=== PATIENT | male | born 1960 | race Caucasian/White ===

== ENCOUNTER 2016-07-02 19:03 | Inpatient (IN) | payer OTHER ==
[2016-07-02] MEDS ORDERED: PHENERGAN IV ONE (20:49)
[2016-07-02] MEDS ORDERED: SODIUM CHLORIDE 0.9% INJ ONE (20:49)
[2016-07-02] MEDS ORDERED: LR 1,000 ML IV PRN (20:49)
[2016-07-02 21:12] LABS: MANUAL DIFF NEEDED? NO
[2016-07-02 21:14] LABS: BASO% 0.4 % (0.0-0.8); EOS# 0.04 X1000 (0.0-0.7); EOS% 0.3 % (0.0-10.0); HEMATOCRIT 44.4 % (42.0-52.0); HEMOGLOBIN 15.5 g/dL (14.0-18.0); IMM GRAN# 0.06 X1000 (0.0-0.04); IMM GRAN% 0.4 % (0.0-0.5); LYMPH# 1.96 X1000 (1.2-3.4); LYMPH% 14.5 % (20.5-51.1); MCH 28.1 PG (27-31); MCHC 34.9 g/dL (33-37); MCV 80.4 FL (81-99); MONO# 1.09 X1000 (0.11-0.59); MONO% 8.1 % (1.7-9.3); MPV 11.5 FL (7.4-10.4); NEUT% 76.3 % (42.2-75.2); PLT 192 X1000 (130-400); RBC 5.52 XMIL (4.7-6.1)
--- NOTE | 2016-07-02 21:17 | PROVIDER DOCUMENTATION ---
HPI-General Adult - General Chief Complaint: Nausea/Vomiting Stated Complaint: NECK PAIN,HEADACHE V/N Time Seen by Provider: 07/02/16 20:48 Source: patient Allergies/Adverse Reactions: Patient Allergies Allergy/AdvReac Type Severity Reaction Status Date / Time cephalexin monohydrate * Allergy Unknown Verified 07/02/16 21:12 [From Keflex] Penicillins Allergy Unknown Verified 07/02/16 21:12 Home Medications: Home Medication List Medication Instructions Recorded Confirmed Last Taken Type Duloxetine [Cymbalta] 60 mg PO DAILY 11/23/15 06/07/16 06/06/16 History Gabapentin 800 mg PO TID 11/23/15 06/07/16 06/06/16 History Ropinirole [Requip] 4 mg PO BID 11/23/15 06/07/16 06/06/16 History Tizanidine [Zanaflex] 4 mg PO Q6H 11/23/15 06/07/16 06/06/16 History Fluticasone Propionate [Flonase 2 spray INH DAILY 03/30/16 06/07/16 06/06/16 History Allergy Relief] Metoprolol [Lopressor] 100 mg PO BID 03/30/16 06/07/16 06/06/16 History Ondansetron HCl [Zofran] 4 mg PO Q6H PRN 03/30/16 06/07/16 06/06/16 History Tolterodine L.a. [Detrol LA] 2 mg PO DAILY 03/30/16 06/07/16 06/06/16 History ATORVAstatin [Lipitor] 40 mg PO QHS 04/30/16 06/07/16 06/06/16 History Collagenase Clostridium Oint 1 misc TOP DAILY 04/30/16 06/07/16 06/06/16 History [Santyl Oint] Insulin Glargine,Hum.rec.anlog 33 unit SQ QAM 04/30/16 06/07/16 06/06/16 History [Toujeo Solostar] Insulin Glargine,Hum.rec.anlog 80 unit SQ HS 04/30/16 06/07/16 06/06/16 History [Toujeo Solostar] Insulin Lispro [Humalog] 12 unit SQ TID 04/30/16 06/07/16 06/06/16 History Losartan [Cozaar] 50 mg PO DAILY 04/30/16 06/07/16 06/06/16 History Amlodipine [Norvasc] 10 mg PO DAILY #90 tablet 05/02/16 06/07/16 06/06/16 Rx Trazodone [Desyrel] 100 mg PO QHS #0 05/02/16 06/07/16 06/06/16 Rx Tramadol HCl [Ultram] 50 mg PO 3-4XDAY PRN PRN #30 tablet 06/09/16 Unknown Rx Levofloxacin [Levaquin] 750 mg PO DAILY #7 tablet 07/03/16 Unknown Rx - History of Present Illness -Gen Adult Nature of Presenting Problems: 56 Y/O M presents to ED with N/V. Pt states that he has a 3 day c/o of Vomiting , and states that he has a bulging disc in neck which is causing headaches, states hasn't eaten in 3 days. Pt states constipation, states a low grade fever , 2-3 weeks of congestion with cough. Location of Pain/Injury: reports: head, neck Quality of Pain: reports: aching Severity: reports: moderate Onset/Duration: reports: 3 days ago Timing: reports: still present Context/Activities at Onset: reports: none Modifying Factors: improves with: nothing Associated Symptoms: reports: back/neck pain, constipation, loss of appetite, nausea, vomiting. denies: diarrhea, dizziness Review of Systems - Adult - REVIEW OF SYSTEMS - ADULT Constitutional: reports: fever. denies: chills Eyes: reports: no symptoms reported Ears, Nose, Mouth & Throat: reports: sinus problem, throat pain Cardiovascular: reports: no symptoms reported Respiratory: reports: cough Gastrointestinal: reports: abdominal pain, constipation, nausea, poor appetite, vomiting. denies: diarrhea Genitourinary: reports: no symptoms reported Musculoskeletal: reports: no symptoms reported Integumentary: reports: no symptoms reported Neurological: reports: headache/migraines Psychiatric: reports: no symptoms reported Endocrine: reports: no symptoms reported Hematologic/Lymphatic: reports: no symptoms reported Allergic/Immunologic: reports: no symptoms reported All Other Systems: Reviewed and Negative Past History - Adult - PAST MEDICAL HISTORY-ADULT Review of Records: reports: Old Records Reviewed, Nursing Assessment Review, Medications Reviewed, Social history reviewed & non-contributory. Cardiovascular: reports: HTN, hyperlipidemia Respiratory: reports: sleep apnea Genitourinary: reports: cancer (kidney) Endocrine/Immune: reports: Diabetes Other Conditions: reports: other (right kidney ca 2012) Additional History: left heal diabetic Foot ulcer - PRIOR SURGERIES/PROCEDURES Surgical/Procedure History: reports: appendectomy, cholecystectomy, orthopedic ( extremity), other (Right Nephrectomy) - IMMUNIZATION STATUS Childhood Immunizations: See Nurse Assessment Flu Vaccine: See Nurse Assessment - FAMILY HISTORY Family History: reviewed, not pertinent - SOCIAL HISTORY Smoking: non-smoker Alcohol Use Frequency: rarely Living Situation: family Physical Exam-General - PHYSICAL EXAM-ADULT Initial Vital Signs Reviewed: Yes - CONSTITUTIONAL General Appearance: appears well, alert, no apparent distress - EYES Eyes: PERRL/EOMI, pink conjunctivae - HEAD, EARS, NOSE, MOUTH & THROAT HENMT: normocephalic/atraumatic, moist mucous membranes, normal ENT inspection, TMs normal, pharynx normal - NECK Neck: non-tender, full range of motion, supple - RESPIRATORY Respiratory: chest non-tender, lungs clear, normal breath sounds - CARDIOVASCULAR Cardiovascular: normal peripheral pulses, regular rate, rhythm - GASTROINTESTINAL (ABDOMEN) Abdominal Exam: normal bowel sounds, soft, tenderness (LUQ) - MUSCULOSKELETAL Back Exam: normal inspection, no CVA tenderness, no vertebral tenderness Extremity: non-tender, pedal edema (2+) - SKIN Integumentary: normal color, normal turgor, warm/dry - NEUROLOGIC Neurologic: investment broker II-XII nml as tested - PSYCHIATRIC Psych/Mental Status: normal mood/affect, normal thought content, normal thought process, oriented x 3 Progress - PLAN OF CARE/RESULTS Progress/Plan/Lab Results: Laboratory Tests 07/02/16 07/02/16 07/02/16 21:05 21:05 21:05 WBC 13.49 H RBC 5.52 Hgb 15.5 Hct 44.4 MCV 80.4 L MCH 28.1 MCHC 34.9 RDW Std Deviation 13.5 Plt Count 192 MPV 11.5 H Immature Gran % (Auto) 0.4 Neut % (Auto) 76.3 H Lymph % (Auto) 14.5 L [place] % (Auto) 8.1 Eos % (Auto) 0.3 Baso % (Auto) 0.4 Immature Gran # (Auto) 0.06 H Neut # (Auto) 10.28 H Lymph # (Auto) 1.96 [place] # (Auto) 1.09 H Eos # (Auto) 0.04 Baso # (Auto) 0.06 Sodium 131 L Potassium 4.2 Chloride 96 L Carbon Dioxide 22 L Anion Gap 13 BUN 32 H Creatinine 2.3 H Estimated GFR/1.73 m2 30 BUN/Creatinine Ratio 14 Glucose 219 H Estimat Average Glucose 212 Hemoglobin A1c 9.0 H Calculated Osmolality 276 Calcium 9.4 Total Bilirubin 1.30 H AST 13 ALT 9 L Alkaline Phosphatase 143 H Troponin T Total Protein 6.3 Albumin 3.1 L Globulin 3.0 Albumin/Globulin Ratio 1.0 Urine Source Urine Color Urine Clarity Urine pH Ur Specific [employer] [place] Urine Protein Urine Ketones Urine Blood Urine Nitrite Urine Bilirubin Urine Urobilinogen Urine Microscopic RBC Urine WBC Urine Microscopic WBC Ur Epithelial Cells Urine Bacteria Urine Casts Urine Glucose Influenza A (Rapid) Influenza B (Rapid) Group A Strep Rapid 07/02/16 07/02/16 07/02/16 21:05 21:17 21:17 WBC RBC Hgb Hct MCV MCH MCHC RDW Std Deviation Plt Count MPV Immature Gran % (Auto) Neut % (Auto) Lymph % (Auto) [place] % (Auto) Eos % (Auto) Baso % (Auto) Immature Gran # (Auto) Neut # (Auto) Lymph # (Auto) [place] # (Auto) Eos # (Auto) Baso # (Auto) Sodium Potassium Chloride Carbon Dioxide Anion Gap BUN Creatinine Estimated GFR/1.73 m2 BUN/Creatinine Ratio Glucose Estimat Average Glucose Hemoglobin A1c Calculated Osmolality Calcium Total Bilirubin AST ALT Alkaline Phosphatase Troponin T 0.019 Total Protein Albumin Globulin Albumin/Globulin Ratio Urine Source Urine Color Urine Clarity Urine pH Ur Specific [employer] Urine Protein Urine Ketones Urine Blood Urine Nitrite Urine Bilirubin Urine Urobilinogen Urine Microscopic RBC Urine WBC Urine Microscopic WBC Ur Epithelial Cells Urine Bacteria Urine Casts Urine Glucose Influenza A (Rapid) NEGATIVE Influenza B (Rapid) NEGATIVE Group A Strep Rapid NEGATIVE 07/02/16 07/03/16 23:50 00:50 WBC RBC Hgb Hct MCV MCH MCHC RDW Std Deviation Plt Count MPV Immature Gran % (Auto) Neut % (Auto) Lymph % (Auto) [place] % (Auto) Eos % (Auto) Baso % (Auto) Immature Gran # (Auto) Neut # (Auto) Lymph # (Auto) [place] # (Auto) Eos # (Auto) Baso # (Auto) Sodium Potassium Chloride Carbon Dioxide Anion Gap BUN Creatinine Estimated GFR/1.73 m2 BUN/Creatinine Ratio Glucose Estimat Average Glucose Hemoglobin A1c Calculated Osmolality Calcium Total Bilirubin AST ALT Alkaline Phosphatase Troponin T 0.022 Total Protein Albumin Globulin Albumin/Globulin Ratio Urine Source CLEAN CATCH Urine Color YELLOW Urine Clarity SL. CLOUDY A Urine pH 6.5 Ur Specific [employer] [place] 1.015 Urine Protein 3+(500 mg/dL) A Urine Ketones 1+(Small) A Urine Blood 1+ A Urine Nitrite NEGATIVE Urine Bilirubin NEGATIVE Urine Urobilinogen NORMAL Urine Microscopic RBC 10-20 A Urine WBC NEGATIVE Urine Microscopic WBC <10 Ur Epithelial Cells <10 Urine Bacteria 2+ Urine Casts GRANULAR PRESENT Urine Glucose 3+(500 mg/dL) A Influenza A (Rapid) Influenza B (Rapid) Group A Strep Rapid Orders Category Date Time Status CHEST-2 VIEWS [RAD] Stat Exams 07/02/16 21:05 Taken A1C HGB W EST AVG GLUCOSE [CHEM] Stat Lab 07/02/16 21:05 Completed CBC WITH DIFF [HEME] Stat Lab 07/02/16 21:05 Completed COMPREHENSIVE METABOLIC PANEL [CHEM] Stat Lab 07/02/16 21:[address] Stat Lab 07/02/16 21:17 Completed Flu [INFLUENZA SCREEN PL] Stat Lab 07/02/16 21:17 Completed TROPONIN T Stat Lab 07/02/16 21:05 Completed TROPONIN T Stat Lab 07/03/16 00:[address] W/POSS RFLX CULT [URINALYSIS] Stat Lab 07/03/16 00:02 Completed URINE CULTURE [RM] Routine Lab 07/03/16 01:14 Ordered 0.9% Sodium Chloride Inj [Ns] 1,000 ml Med 07/02/16 22:04 Active IV 100 mls/hr Lactated Ringers Inj [Lr] 1,000 ml Med 07/02/16 20:49 Discontinued IV 500 mls/hr Levofloxacin 750 mg/D5w [Levaquin 750 mg/D5w] 150 ml Med 07/03/16 00:08 Discontinued .ROUTE As Directed Levofloxacin [Levaquin] Med 07/03/16 02:03 Discontinued 750 mg PO NOW ONE Levofloxacin [Levaquin] 750 mg Med 07/02/16 23:37 Discontinued 0.9% Sodium Chloride Inj [Ns] 150 ml IV NOW Morphine Med 07/02/16 23:36 Discontinued 4 mg IV NOW ONE Ondansetron [Zofran] Med 07/02/16 23:36 Discontinued 4 mg IV NOW ONE Promethazine [Phenergan] Med 07/02/16 20:49 Discontinued 25 mg IV NOW ONE Sodium Chloride 0.9% Med 07/02/16 20:49 Discontinued 10 ml INJ NOW ONE EKG [EKG] Stat Ther 07/02/16 21:06 Draft Vital Signs - 24 hr 07/02/16 07/03/16 07/03/16 19:28 00:58 01:38 Temperature 98.1 F 99.2 F Pulse Rate 96 H 101 H 110 H Respiratory 18 20 20 Rate Blood Pressure 200/112 193/131 O2 Sat by Pulse 98 95 94 L Oximetry - EKG 1 Time of EKG reading by physician:: 22:50 EKG Read and Signed by:: Jamar Marcus EKG Interpretation (*Must complete 3 of following elements*): Normal Rate: 101 Rhythm: NSR with tachycardia Comments: Normal ECG Departure - Departure Time of Disposition Order: 02:10 DIAGNOSIS: Poorly controlled diabetes mellitus UTI (urinary tract infection) Qualifiers: Urinary tract infection type: site unspecified Hematuria presence: without hematuria Qualified Code(s): N39.0 - Urinary tract infection, site not specified Disposition: HOME 01 Certified Medical Emergency: Emergent Condition: Fair Additional Instructions: SEE FAMILY DOCTOR THIS WEEK FOR ADJUSTMENT OF DIABETES MEDICATION Prescriptions: Levofloxacin [Levaquin] 750 mg PO DAILY #7 tablet Referrals: Daisy Dent DO [Primary Care Provider] - Attestation - Scribe Verification/Attestation Scribe:: Mara Barraza Acting as Scribe for:: Jamar Marcus Scribe documention review:: This chart was documented by a scribe and accurately reflects the service the provider performed and the decisions made by the provider.
[2016-07-02 21:37] LABS: ALBUMIN 3.1 g/dL (3.5-5.0); CALCIUM 9.4 mg/dL (8.8-10.2); POTASSIUM 4.2 mmol/L (3.5-5.1); TOTAL BILIRUBIN 1.3 mg/dL (0.20-1.00); TOTAL PROTEIN 6.3 g/dL (6.3-8.3)
[2016-07-02] MEDS ORDERED: NS 1,000 ML IV PRN (22:04)
--- NOTE | 2016-07-02 23:01 | EKG Report ---
Test Performed on : 07/02/2016 10:50:58 PM Test Reason : pain Blood Pressure : / mmHG Vent. Rate : 101 BPM Atrial Rate : 101 BPM P-R Int : 162 ms QRS Dur : 086 ms QT Int : 336 ms P-R-T Axes : 040 -12 061 degrees QTc Int : 435 ms Sinus tachycardia. Otherwise normal ECG When compared with ECG of 14-FEB-2016 02:27, Vent. rate has increased BY 33 BPM Criteria for Septal infarct are no longer present Nonspecific T wave abnormality no longer evident in Inferior leads Unconfirmed Result
[2016-07-02] MEDS ORDERED: MORPHINE IV ONE (23:36)
[2016-07-02] MEDS ORDERED: ZOFRAN IV ONE (23:36)
[2016-07-02] MEDS ORDERED: LEVAQUIN 750 MG in NS 150 ML IV ONE (23:37)
[2016-07-03] MEDS ORDERED: LEVAQUIN 750 MG/D5W 150 ML ONE (00:08)
[2016-07-03 00:13] LABS: URINE SOURCE CLEAN CATCH
[2016-07-03 01:12] LABS: BILIRUBIN URINE NEGATIVE (NEGATIVE); BLOOD URINE 1+ (NEGATIVE); CLARITY SL. CLOUDY (CLEAR); COLOR YELLOW; LEUKOCYTES URINE NEGATIVE (NEGATIVE); NITRITE URINE NEGATIVE (NEGATIVE); PH URINE 6.5; SP GRAVITY URINE 1.015; UROBILINOGEN URINE NORMAL
[2016-07-03 01:13] LABS: URINE CAST GRANULAR PRESENT /LPF; URINE CULTURE PL NEEDED? YES; URINE EPITHELIAL CELLS <10 /HPF (<10); URINE WBC <10 /HPF (<10)
[2016-07-03] MEDS ORDERED: LEVAQUIN PO ONE (02:03)
[2016-07-03] MEDS ORDERED: NORVASC PO ONE (02:14)
[2016-07-03] MEDS ORDERED: COZAAR PO ONE (02:15)
[2016-07-03] MEDS ORDERED: LABETALOL IV ONE (02:15)
[2016-07-03] MEDS ORDERED: APRESOLINE IV ONE (02:15)
[2016-07-03] MEDS ORDERED: SODIUM CHLORIDE 0.9% INJ ONE ×2 (02:50→02:57)
[2016-07-03] MEDS ORDERED: PHENERGAN IV ONE ×2 (02:50→02:57)
[2016-07-03] MEDS ORDERED: MORPHINE IV ONE (02:57)
[2016-07-03] MEDS ORDERED: ZOFRAN IV ONE (03:52)
[2016-07-03] MEDS ORDERED: ZOFRAN ONE (03:55)
[2016-07-03] MEDS ORDERED: ZOFRAN IV PRN ×2 (04:04→06:11)
[2016-07-03] MEDS ORDERED: HUMULIN R DOSE (PARKWAY) SUBQ ONE (04:04)
[2016-07-03] MEDS ORDERED: ULTRAM PO PRN (04:11)
[2016-07-03] MEDS: NS 1,000 ML IV SCH ×3 (05:31→15:59)
[2016-07-03] MEDS ORDERED: NS 1,000 ML IV ONE (05:43)
[2016-07-03] MEDS ORDERED: TYLENOL PO PRN (06:11)
[2016-07-03] MEDS ORDERED: SODIUM CHLORIDE 0.9% INJ SCH (06:15)
[2016-07-03 06:37] LABS: HEMATOCRIT 39.3 % (42.0-52.0); HEMOGLOBIN 13.6 g/dL (14.0-18.0); MCH 28.3 PG (27-31); MCHC 34.6 g/dL (33-37); MCV 81.9 FL (81-99); MPV 11.5 FL (7.4-10.4); RBC 4.8 XMIL (4.7-6.1)
--- NOTE | 2016-07-03 06:41 | Diag Imaging Result Document ---
PROCEDURE NAME: CHEST-2 VIEWS - 07/02/2016 FRONTAL AND LATERAL CHEST, TWO VIEWS: COMPARISON: Compared to 06/06/2016. FINDINGS: The lungs are well expanded. The heart is not enlarged. The vessels are not distended. There are no infiltrates. No pleural effusions. No free air beneath the diaphragm. IMPRESSION: No pneumonia.
[2016-07-03 07:17] LABS: ALBUMIN 2.8 g/dL (3.5-5.0); CALCIUM 8.7 mg/dL (8.8-10.2); HEMOGLOBIN A1C 8.6 % (4.8-6.0); MAGNESIUM 1.7 mg/dL (1.5-2.7); POTASSIUM 3.8 mmol/L (3.5-5.1); TOTAL BILIRUBIN 1.2 mg/dL (0.20-1.00); TOTAL PROTEIN 5.5 g/dL (6.3-8.3)
[2016-07-03] MEDS: CYMBALTA PO SCH (08:08)
[2016-07-03] MEDS: REQUIP PO SCH ×2 (08:08→21:04)
[2016-07-03] MEDS: PROTONIX IV SCH (08:08)
[2016-07-03] MEDS: DETROL LA PO SCH (08:09)
[2016-07-03] MEDS: LOPRESSOR PO SCH ×2 (08:09→21:06)
[2016-07-03] MEDS: COZAAR PO SCH (08:09)
[2016-07-03] MEDS: NEURONTIN PO SCH ×4 (08:09→21:05)
[2016-07-03] MEDS: NORVASC PO SCH (08:10)
--- NOTE | 2016-07-03 17:09 | HISTORY AND PHYSICAL ---
CHIEF COMPLAINT: Nausea, vomiting, and headache. HISTORY OF PRESENT ILLNESS: This is a 56-year-old male with a history of renal cell cancer on the right in 2012, hypertension, hyperlipidemia and diabetes mellitus. He presented to the emergency room complaining of 3 days of nausea and vomiting, also that he has known bulging disk in his neck which causes headaches. Because of the vomiting, this has been aggravated. He does have chronic constipation. He was found to have a white count of 13.4. He was afebrile with blood glucose in the 200s, but with an A1c of 9. In the emergency room, he was given IV hydration as well as morphine and Phenergan. He is being admitted for further evaluation and treatment. PAST MEDICAL HISTORY: Diabetes mellitus with noncompliance, chronic kidney disease with a baseline creatinine of 2 to 2.3 over the last, it looks like, 6 months. Hypertension. History of Charcot joint. Bilateral diabetic ulcers to both feet. He is under the care of Dr. Sorot. Chronic constipation. PAST SURGICAL HISTORY: 1. Amputation of the first toes bilaterally. 2. Charcot joint repair. 3. Appendectomy. 4. Cholecystectomy. 5. Right nephrectomy secondary to renal cell carcinoma in 2011. SOCIAL HISTORY: He denies alcohol, tobacco, or illicit drug use. He does live at home with his . ALLERGIES: Keflex and penicillin. HOME MEDICATIONS: Toujeo insulin 30 units in the morning and 80 units at night. Gabapentin 800 mg t.i.d. Flonase 2 sprays daily. Cymbalta 60 daily. Norvasc 10 daily. Lipitor 40 at bedtime. Trazodone 100 at bedtime. Ultram 50 at 3-4 times a day. Detrol LA 2 mg daily. Zanaflex 4 q.6 hours. Requip 4 b.i.d. Zofran 4 q.6 hours. Lopressor 100 b.i.d. Cozaar 50 daily. Humalog 12 units subcutaneously with meals. Levaquin 750 daily. REVIEW OF SYSTEMS: A 14-point review of systems is discussed with the patient with pertinent positives of headache, nausea and vomiting, chronic constipation, sore throat after vomiting. He denies chest pain, palpitations, dizziness, syncope, fever, black or bloody vomitus, black or bloody stools, hematuria, dysuria, frequency, or urgency. PHYSICAL EXAMINATION: GENERAL: This is a 56-year-old male who is sitting in the bed, watching TV with no distress. VITAL SIGNS: Blood pressure is 177/90 with a heart rate of 94, respirations are 18, temperature is 98.4 degrees oral with room air saturations of 98% to 99%. CARDIOVASCULAR: Regular rate and rhythm. S1 and S2 appreciated. PULMONARY: Breath sounds are clear. No increased work of breathing noted. GASTROINTESTINAL: Abdomen is soft, nontender, nondistended. Bowel sounds in all 4 quadrants. EXTREMITIES: No clubbing or cyanosis. He does have 2 to 3+ pitting edema with dressings intact to both feet. LABORATORY DATA: WBC is 13.4, with hemoglobin 15.5, hematocrit 44, and platelets of 192,000. Sodium is 131, potassium 4.2, BUN 32, creatinine 2.3 with a glucose of 219. Hemoglobin A1c is 9. Total bilirubin is 1.30. Flu A and B and group A strep were negative. Chest x-ray revealed no acute processes. ASSESSMENT AND PLAN: 1. Nausea and vomiting. 2. Headache secondary to cervical disk disease. 3. Moderate protein-calorie malnutrition. TREATMENT PLAN: He will be admitted to the hospital. He will be n.p.o. We will give IV hydration with IV nausea medication. We will trend labs. We will hold any renal toxic medications. We will hold any long-acting insulin. We will trend blood sugars, and this can be treated with pattern insulin. Urinalysis did reveal protein, ketones, and 1+ blood with 10-20 microscopic red blood cells, less than 10 microscopic white blood cells, and 2+ bacteria. This was a clean-catch specimen. He was given Levaquin in the emergency room. We will continue to culture his urine. Urine culture was ordered in the emergency room at 1:00 a.m., so we will watch for these results. Further treatments pending hospital course. Dictated by CHEPE Muñoz for Constantine Urias MD
[2016-07-03] MEDS ORDERED: ZANAFLEX PO SCH (19:00)
[2016-07-03] MEDS: DESYREL PO SCH (21:04)
[2016-07-03] MEDS: ULTRAM PO SCH (21:05)
[2016-07-03] MEDS: LIPITOR PO SCH (21:06)
[2016-07-03] MEDS: ZANAFLEX PO SCH (21:06)
[2016-07-04] MEDS: NS 1,000 ML IV SCH ×4 (00:36→20:55)
[2016-07-04] MEDS: LEVAQUIN 500 MG/D5W 100 ML IV SCH (02:16)
[2016-07-04] MEDS: ULTRAM PO SCH ×4 (03:52→23:01)
[2016-07-04] MEDS: ZANAFLEX PO SCH ×4 (04:02→23:02)
[2016-07-04] MEDS: NEURONTIN PO SCH ×3 (04:18→20:57)
[2016-07-04] MEDS: SANTYL OINT TOP SCH ×2 (05:32→13:33)
[2016-07-04] MEDS: PROTONIX IV SCH (05:53)
[2016-07-04] MEDS: MORPHINE IV PRN ×2 (06:02→17:40)
--- NOTE | 2016-07-04 08:53 | Diag Imaging Result Document ---
PROCEDURE NAME: US ABDOMEN-COMPLETE - 07/04/2016 ABDOMINAL ULTRASOUND: FINDINGS: The pancreas is obscured by overlying bowel gas. The proximal aorta is normal. The mid and distal aorta are obscured as is the inferior vena cava. I believe there is fatty infiltration of the liver. It is difficult to penetrate the liver. The gallbladder is not present. The common bile duct measures less than 7 mm. The right kidney is not present. The spleen measures 13.9 cm in length. No ascites. Normal left kidney. No hydronephrosis. The left kidney measures 15.5 cm in length. IMPRESSION: 1. Cholecystectomy and right nephrectomy. 2. Fatty infiltration of the liver. 3. Hypertrophic left kidney. 4. Mild splenomegaly. [facility]
--- NOTE | 2016-07-04 09:04 | Diag Imaging Result Document ---
PROCEDURE NAME: ABDOMEN FLAT/UPRIGHT - 07/03/2016 FLAT AND UPRIGHT ABDOMEN, FOUR VIEWS: FINDINGS: No free air beneath the diaphragm. There are surgical clips in the right upper quadrant from a cholecystectomy. Air and stool is found throughout the colon. The bowel loops are not distended. No organomegaly. The patient has mild scoliosis. There are several pelvic calcifications believed to be phleboliths. IMPRESSION: No acute abnormality.
--- NOTE | 2016-07-04 09:19 | PROGRESS NOTE ---
DATE: 07/04/2016 SUBJECTIVE: The patient notes his nausea and vomiting is a little better. He is still having abdominal pain. He is still having lots of neck pain and headaches. Denies any focalized weakness in his upper extremities. Denies any blood in his emesis. He notes that he has not had a bowel movement, but he has been passing some gas. OBJECTIVE: Vital Signs: On physical, temperature 97.0 degrees, pulse 50, respiratory rate 18, BP 120/73, sat 98% on room air. General: Patient is a well developed, obese male, who is currently in no respiratory distress. He appears less nauseated than yesterday. We will continue to follow. Neck: Supple. CV: Regular rate. Chest: Relatively clear. Abdomen: Soft, obese. Positive bowel sounds. Extremities: Moves all extremities. LABS: Reviewed. ASSESSMENT: 1. Leukocytosis. 2. Mild hyponatremia. 3. Chronic renal failure with serum creatinine 2.3. 4. Hypocalcemia. 5. Moderate protein calorie malnutrition. PLAN: We will check an ultrasound of his abdomen. Should this be normal, we will begin advancing his diet. Hopefully, home in the next 1-2 days.
[2016-07-04] MEDS: CYMBALTA PO SCH (12:48)
[2016-07-04] MEDS: LOPRESSOR PO SCH ×2 (12:49→20:57)
[2016-07-04] MEDS: REQUIP PO SCH ×2 (12:49→20:57)
[2016-07-04] MEDS: DETROL LA PO SCH (12:50)
[2016-07-04] MEDS: NORVASC PO SCH (12:50)
[2016-07-04] MEDS: COZAAR PO SCH (12:54)
--- NOTE | 2016-07-04 13:22 | Diag Imaging Result Document ---
PROCEDURE NAME: GASTRIC EMPTYING - 07/04/2016 NUCLEAR MEDICINE GASTRIC EMPTYING EXAM. TECHNIQUE AND FINDINGS: Five hundred ninety-six microcuries of technetium sulfur colloid ingested with an egg sandwich. Imaging for 2 hours obtained. T 1/2 is calculated to be 5 hours and 37 minutes. This falls above the normal range. IMPRESSION: Delayed gastric emptying.
[2016-07-04] MEDS: REGLAN PO SCH (16:56)
[2016-07-04] MEDS: DESYREL PO SCH (20:58)
[2016-07-04] MEDS: LIPITOR PO SCH (21:08)
[2016-07-05] MEDS: LEVAQUIN 500 MG/D5W 100 ML IV SCH (03:54)
[2016-07-05] MEDS: ULTRAM PO SCH ×4 (03:54→21:06)
[2016-07-05] MEDS: ZANAFLEX PO SCH ×2 (03:54→09:21)
[2016-07-05] MEDS: NEURONTIN PO SCH ×3 (05:36→21:06)
[2016-07-05] MEDS: PROTONIX IV SCH (05:36)
[2016-07-05] MEDS: NS 1,000 ML IV SCH ×4 (05:48→23:59)
[2016-07-05] MEDS: MORPHINE IV PRN (05:48)
[2016-07-05] MEDS ORDERED: HUMALOG (PARKWAY) SUBQ SCH (07:00)
[2016-07-05 07:13] LABS: HEMOGLOBIN 11.4 g/dL (14.0-18.0); MCH 28.2 PG (27-31); MCHC 33.5 g/dL (33-37); MCV 84.2 FL (81-99); MPV 11.8 FL (7.4-10.4); RBC 4.04 XMIL (4.7-6.1)
[2016-07-05 07:39] LABS: ALBUMIN 2.3 g/dL (3.5-5.0); CALCIUM 8.5 mg/dL (8.8-10.2); MAGNESIUM 1.9 mg/dL (1.5-2.7); TOTAL BILIRUBIN 0.4 mg/dL (0.20-1.00); TOTAL PROTEIN 4.5 g/dL (6.3-8.3)
[2016-07-05] MEDS: REQUIP PO SCH ×2 (09:20→21:06)
[2016-07-05] MEDS: CYMBALTA PO SCH (09:21)
[2016-07-05] MEDS: NORVASC PO SCH (09:21)
[2016-07-05] MEDS: LOPRESSOR PO SCH (09:21)
[2016-07-05] MEDS: DETROL LA PO SCH (09:21)
[2016-07-05] MEDS: COZAAR PO SCH (09:21)
[2016-07-05] MEDS: REGLAN PO SCH ×3 (09:21→16:53)
[2016-07-05] MEDS: SANTYL OINT TOP SCH (09:22)
[2016-07-05] MEDS: HUMALOG DOSE (PARKWAY) SUBQ SCH ×3 (12:08→21:44)
--- NOTE | 2016-07-05 14:08 | PROGRESS NOTE ---
DATE: 07/05/2016 SUBJECTIVE: The patient states his nausea and vomiting are better as is his abdominal pain. He has tolerated an advance his diet although today he states that he feels weak all over. It is noted that he has been bradycardic. OBJECTIVE: Vital Signs: Blood pressure is 128/76 with a heart rate of 57, respirations are 18, temperature is 98 degrees oral with room air saturations 99%. Cardiovascular: Regular rate and rhythm. He is bradycardic. S1 and S2 appreciated. Pulmonary: Breath sounds are clear. No increased work of breathing noted. GASTROINTESTINAL: Abdomen large, soft, nontender, nondistended with bowel sounds in all 4 quadrants. LABS: WBC is 9.3 with hemoglobin 11, hematocrit 34, platelets of 146,000. Sodium is 134, potassium 4, BUN is 31, creatinine 2.5 with blood sugars ranging from 160-280. ASSESSMENT: 1. Leukocytosis resolved. 2. Bradycardia. 3. Mild hyponatremia. 4. Chronic renal failure with a serum creatinine of 2.5. 5. Hypocalcemia resolved. Serum calcium is 8.5. Corrected for albumin is 9.8. Will continue to follow. 6. Moderate protein calorie malnutrition. 7. Gastroparesis with gastric emptying nuclear medicine exam having a t 1/2 calculated to be 5 hours and 37 minutes which falls above the normal range. PLAN: We will continue with his current medical regimen with the exception of Zanaflex and looking back at his records, Zanaflex was started and he within a few hours became bradycardic. We will discontinue this. Will continue telemetry and follow. He does state that nausea and abdominal discomfort has greatly improved after starting Reglan. We will continue this. We will repeat labs in the morning. Dictated by CHEPE Muñoz for Constantine Urias MD
[2016-07-05] MEDS: DESYREL PO SCH (21:06)
[2016-07-05] MEDS: LIPITOR PO SCH (21:07)
[2016-07-06] MEDS: NEURONTIN PO SCH ×2 (04:08→12:12)
[2016-07-06] MEDS: ULTRAM PO SCH ×3 (04:08→16:33)
[2016-07-06] MEDS: LEVAQUIN 500 MG/D5W 100 ML IV SCH (04:08)
[2016-07-06] MEDS: NS 1,000 ML IV SCH ×2 (06:20→15:50)
[2016-07-06] MEDS: HUMALOG DOSE (PARKWAY) SUBQ SCH ×3 (06:20→16:33)
[2016-07-06] MEDS: PROTONIX IV SCH (06:20)
[2016-07-06] MEDS: COZAAR PO SCH (09:21)
[2016-07-06] MEDS: CYMBALTA PO SCH (09:21)
[2016-07-06] MEDS: REQUIP PO SCH (09:21)
[2016-07-06] MEDS: REGLAN PO SCH ×3 (09:21→16:33)
[2016-07-06] MEDS: DETROL LA PO SCH (09:21)
[2016-07-06] MEDS: NORVASC PO SCH (09:21)
[2016-07-06] MEDS: SANTYL OINT TOP SCH (09:22)
--- NOTE | 2016-07-06 10:10 | PROGRESS NOTE ---
DATE: 07/06/2016 SUBJECTIVE: The patient notes that his abdominal pain is a little bit better, complains of shaking of his bilateral hands, complains of neck pain and headaches which have been unchanged throughout the hospital stay. Denies any fevers or chills, denies current nausea or vomiting. OBJECTIVE/PHYSICAL EXAMINATION: Vital signs: Temp 97, pulse 63, respiratory 16, BP 151/80. General: The patient is well developed, well nourished, currently in no real respiratory distress. He is an overweight male who is awake, alert. Neck: Supple. CV: Regular rate. Chest: Relatively clear. Abdomen: Soft. Extremities: Moves all extremities. Neurological: No changes. Skin: Warm, dry, no rashes. ASSESSMENT: 1. Diabetes with poor home control. 2. Cervical neuralgia, stable. 3. Headache secondary to cervical neuralgia. 4. Diabetic gastroparesis. 5. Benign prostatic hypertrophy. 6. Restless legs. 7. Chronic reflux. 8. Hypertension. 9. Chronic neuropathy. 10.Depression. 11.Tremors. PLAN: Discussed with the patient that the tremors in his hand certainly should improve with physical activity at home. Discussed with him that he has to stop IV pain medication at this point as that certainly would increase his diabetic gastroparesis. Hopefully, patient will improve and discharge later this afternoon. He will need to follow up with primary care of his choice. He will need to follow a strict diabetic diet, continue to monitor his blood sugar, and further orders as needed.
[2016-07-06 11:47] VITALS: BP 180/95
--- NOTE | 2016-07-08 05:41 | DISCHARGE SUMMARY ---
ADMISSION DATE: 07/03/2016 DISCHARGE DATE: 07/06/2016 DISCHARGE DIAGNOSES: 1. Nausea and vomiting improved. 2. Diabetes with intentional poor home control. 3. Diabetic gastroparesis. 4. Headache secondary to cervical disk disease. 5. Moderate protein calorie malnutrition. 6. Bilateral hand tremors of undetermined origin or significance. 7. Restless leg. 8. Chronic reflux. 9. Hypertension. 10. Chronic diabetic neuropathy. 11. Chronic depression. CONSULTATIONS: None. PROCEDURES: None. BRIEF HOSPITAL COURSE: Patient is a 56-year-old male, who was admitted as noted on the HPI secondary to nausea, vomiting, and abdominal pain. He underwent a gastric emptying study which did not empty for 5 hours. Discussed with patient at great length that he has severe diabetic gastroparesis and the only fix for this is controlling his blood sugar and not pain medications. Patient notes that he had some hand tremors with his oddly notes that the last time he had hand tremors he was in renal failure. Discussed with her that that is not usually a symptom of renal failure and his creatinine has been fine. Thankfully, the patient had an uneventful hospital course. He was started on Reglan. He will be discharged home on Reglan and Carafate. Discussed with him that he will need to control his blood sugar and continue to follow up with his primary care physician. Thankfully, he improved and will be discharged home.
== END 2016-07-06 19:43 | disposition home or self-care (01) | DRG 74 ==
LOC: P.ED 19:03 → P.MEDSURG 19:04 → INTOOBSV 07-03 04:36 → OBSVTOIN 07-03 04:36 → UNDOADMOB 07-03 04:36 → P.MEDSURG 07-03 04:36
PROVIDERS: ATTEND Family Medicine
DX: E11.43 Type 2 diabetes mellitus with diabetic autonomic (poly)neuropathy (principal); E11.22 Type 2 diabetes mellitus with diabetic chronic kidney disease; E11.621 Type 2 diabetes mellitus with foot ulcer; E44.0 Moderate protein-calorie malnutrition; E83.51 Hypocalcemia; M50.20 Other cervical disc displacement, unspecified cervical region; E87.1 Hypo-osmolality and hyponatremia; N39.0 Urinary tract infection, site not specified; K31.84 Gastroparesis; E11.65 Type 2 diabetes mellitus with hyperglycemia; I10 Essential (primary) hypertension; K59.00 Constipation, unspecified; E78.5 Hyperlipidemia, unspecified; G47.30 Sleep apnea, unspecified; Z85.528 Personal history of other malignant neoplasm of kidney; Z90.5 Acquired absence of kidney; I12.9 Hypertensive chronic kidney disease with stage 1 through stage 4 chronic kidney disease, or unspecified chronic kidney disease; N18.9 Chronic kidney disease, unspecified; L97.529 Non-pressure chronic ulcer of other part of left foot with unspecified severity; L97.519 Non-pressure chronic ulcer of other part of right foot with unspecified severity; R00.1 Bradycardia, unspecified; E11.42 Type 2 diabetes mellitus with diabetic polyneuropathy; N40.0 Benign prostatic hyperplasia without lower urinary tract symptoms; G25.81 Restless legs syndrome; K21.9 Gastro-esophageal reflux disease without esophagitis; F32.9 Major depressive disorder, single episode, unspecified; R25.1 Tremor, unspecified
CPT/HCPCS: 36415; 71020; 74020; 76700; 78264; 80053; 81001; 82948; 83036; 83735; 84443; 84484; 85025; 85027; 87081; 87088; 87430; 87804; 93005; 96361; 96365; 96375; 96376; A9541; C9113; J0360; J1815; J2270; J2405; J2550; J7030; J7120; S0164

== ENCOUNTER 2016-08-19 18:53 | Inpatient (IN) ==
[2016-08-19] MEDS ORDERED: NITROGLYCERIN SL PRN (19:41)
[2016-08-19] MEDS ORDERED: ASPIRIN PO STA (19:41)
[2016-08-19 20:18] LABS: MANUAL DIFF NEEDED? NO
[2016-08-19 20:20] LABS: BASO% 0.7 % (0.0-0.8); EOS# 0.13 X1000 (0.0-0.7); EOS% 1.4 % (0.0-10.0); HEMATOCRIT 34.3 % (42.0-52.0); HEMOGLOBIN 11.7 g/dL (14.0-18.0); IMM GRAN# 0.15 X1000 (0.0-0.04); IMM GRAN% 1.6 % (0.0-0.5); LYMPH# 2.09 X1000 (1.2-3.4); MCH 28.2 PG (27-31); MCHC 34.1 g/dL (33-37); MCV 82.7 FL (81-99); MONO# 0.61 X1000 (0.11-0.59); MONO% 6.4 % (1.7-9.3); MPV 12.3 FL (7.4-10.4); NEUT% 67.9 % (42.2-75.2); PLT 186 X1000 (130-400); RBC 4.15 XMIL (4.7-6.1)
[2016-08-19 21:15] LABS: ALBUMIN 2.5 g/dL (3.5-5.0); CALCIUM 8.8 mg/dL (8.8-10.2); MAGNESIUM 1.7 mg/dL (1.5-2.7); POTASSIUM 4.7 mmol/L (3.5-5.1); TOTAL BILIRUBIN 0.3 mg/dL (0.20-1.00); TOTAL PROTEIN 5.1 g/dL (6.3-8.3)
[2016-08-19 21:17] LABS: INR 0.9 (0.86-1.15); PROTIME 12.5 Seconds (12.1-15.5); PTT PL 27.3 Seconds (22.6-43.9)
--- NOTE | 2016-08-19 21:47 | EKG Report ---
Test Performed on : 08/19/2016 8:12:19 PM Test Reason : CHEST PAIN Blood Pressure : / mmHG Vent. Rate : 058 BPM Atrial Rate : 535 BPM P-R Int : 000 ms QRS Dur : 090 ms QT Int : 418 ms P-R-T Axes : 000 -08 018 degrees QTc Int : 410 ms Junctional rhythm. Abnormal ECG When compared with ECG of 07-AUG-2016 20:40, Junctional rhythm. has replaced Sinus rhythm. Unconfirmed Result
[2016-08-19] MEDS ORDERED: NS 1,000 ML IV ONE (22:46)
[2016-08-19] MEDS ORDERED: ZOFRAN IV PRN (22:46)
[2016-08-19] MEDS ORDERED: LOVENOX 1 MG/KG SUBQ ONE (22:46)
[2016-08-19] MEDS ORDERED: MORPHINE IV PRN (22:46)
--- NOTE | 2016-08-19 22:51 | PROVIDER DOCUMENTATION ---
This chart was entered by Nereida Murray Scribe, acting as scribe for Issa Romero PA. HPI-Chest Pain - General Chief Complaint: B/P Problems Stated Complaint: HIGH BP/CHEST PAIN/HEADACHE Time Seen by Provider: 08/19/16 19:40 Source: patient Allergies/Adverse Reactions: Patient Allergies Allergy/AdvReac Type Severity Reaction Status Date / Time cephalexin monohydrate * Allergy Unknown Verified 08/19/16 19:43 [From Keflex] Penicillins Allergy Unknown Verified 08/19/16 19:43 Home Medications: Home Medication List Medication Instructions Recorded Confirmed Last Taken Type Duloxetine [Cymbalta] 60 mg PO DAILY 11/23/15 08/19/16 1 Week Ago History Gabapentin 800 mg PO TID 11/23/15 08/19/16 08/19/16 History Ropinirole [Requip] 4 mg PO BID 11/23/15 08/19/16 08/19/16 History Tizanidine [Zanaflex] 4 mg PO Q6H 11/23/15 08/19/16 08/19/16 History Fluticasone Propionate [Flonase 2 spray INH DAILY 03/30/16 08/19/16 08/19/16 History Allergy Relief] Metoprolol [Lopressor] 100 mg PO BID 03/30/16 08/19/16 08/19/16 11:00 History Ondansetron HCl [Zofran] 4 mg PO Q6H PRN 03/30/16 08/19/16 06/06/16 History Tolterodine L.a. [Detrol LA] 2 mg PO BID 03/30/16 08/19/16 08/19/16 History ATORVAstatin [Lipitor] 40 mg PO QHS 04/30/16 08/19/16 08/19/16 History Insulin Glargine,Hum.rec.anlog 34 unit SQ QAM 04/30/16 08/19/16 08/19/16 History [Toujeo Solostar] Insulin Glargine,Hum.rec.anlog 80 unit SQ HS 04/30/16 08/19/16 1 Day Ago History [Toujeo Solostar] Insulin Lispro [Humalog] 14 unit SQ TID 04/30/16 08/19/16 08/19/16 History Amlodipine [Norvasc] 10 mg PO DAILY #90 tablet 05/02/16 08/19/16 08/19/16 11:00 Rx Trazodone [Desyrel] 100 mg PO QHS #0 05/02/16 08/19/16 1 Day Ago Rx Metoclopramide [Reglan] 10 mg PO TID AC #120 tablet 07/06/16 08/19/16 08/19/16 Rx Losartan [Cozaar] 100 mg PO DAILY #30 08/08/16 08/19/16 08/19/16 11:00 Rx Clonidine Patch [Effzxtaa-Ohm-3] 08/19/16 08/19/16 History - History of Present Illness-CP Nature of Presenting Problem: 56 year old M presents to the ED with a cc of elevated blood pressure, headache , and intermittent chest pains with an onset of this afternoon around 1500. PT states that the chest pain is a little bit worse with deep inspiration. PT states that blood pressure at home was 243/128. PT states that he saw his PCP today and his blood pressure medications were increased. PT states that he took all of his morning medications this morning around 1100. Location: reports: substernal Chest Pain Radiation: reports: no radiation Quality of Pain: reports: tightness Severity in ED: mild Onset/Duration: 4-6 hours ago Timing: intermittent Associated Symptoms: reports: headache Similar Symptoms Previously?: No Recently Seen Here or By Another Healthcare Provider: Yes Review of Systems - Adult - REVIEW OF SYSTEMS - ADULT Constitutional: denies: chills, fever Eyes: reports: no symptoms reported Ears, Nose, Mouth & Throat: reports: no symptoms reported Cardiovascular: reports: chest pain. denies: palpitations Respiratory: denies: cough, shortness of breath Gastrointestinal: denies: nausea, vomiting Genitourinary: reports: no symptoms reported Musculoskeletal: denies: muscle aches, muscle weakness Integumentary: reports: no symptoms reported Neurological: reports: headache/migraines. denies: dizziness/vertigo Psychiatric: reports: no symptoms reported Endocrine: reports: no symptoms reported Hematologic/Lymphatic: reports: no symptoms reported Allergic/Immunologic: reports: no symptoms reported All Other Systems: Reviewed and Negative Past History - Adult - PAST MEDICAL HISTORY-ADULT Review of Records: reports: Nursing Assessment Review, Medications Reviewed Major Childhood Illnesses: reports: denies history Cardiovascular: reports: HTN, hyperlipidemia Respiratory: reports: sleep apnea Genitourinary: reports: cancer (kidney) Endocrine/Immune: reports: Diabetes Other Conditions: reports: other (right kidney ca 2012) Additional History: left heal diabetic Foot ulcer - PRIOR SURGERIES/PROCEDURES Surgical/Procedure History: reports: appendectomy, cholecystectomy, orthopedic ( extremity), other (Right Nephrectomy) - IMMUNIZATION STATUS Childhood Immunizations: See Nurse Assessment Flu Vaccine: See Nurse Assessment - FAMILY HISTORY Family History: reviewed, not pertinent - SOCIAL HISTORY Smoking: non-smoker Substance Use: none/never Alcohol Use Frequency: rarely Physical Exam-General - PHYSICAL EXAM-ADULT Initial Vital Signs Reviewed: Yes - CONSTITUTIONAL General Appearance: appears well, alert, no apparent distress - RESPIRATORY Respiratory: chest non-tender, lungs clear, normal breath sounds - CARDIOVASCULAR Cardiovascular: normal peripheral pulses, regular rate, rhythm, no edema - MUSCULOSKELETAL Extremity: other (walking boot to left lower extremity with dressing. Dressing changed today by wound nurse.) Progress - PLAN OF CARE/RESULTS Progress/Plan/Lab Results: Vital Signs - 8 hr 08/19/16 19:40 08/19/16 19:53 08/19/16 20:30 Temperature 97.8 F Pulse Rate 58 L 58 L Respiratory Rate 16 14 Blood Pressure 120/79 148/75 162/84 O2 Sat by Pulse Oximetry 96 99 08/19/16 20:48 08/19/16 21:00 08/19/16 21:32 Temperature Pulse Rate 56 L 55 L 58 L Respiratory Rate 13 14 16 Blood Pressure 159/78 169/94 208/95 O2 Sat by Pulse Oximetry 98 95 97 08/19/16 22:25 Temperature Pulse Rate 56 L Respiratory Rate 20 Blood Pressure 195/106 O2 Sat by Pulse Oximetry 96 Laboratory Results - last 24 hr 08/19/16 08/19/16 08/19/16 20:10 20:10 20:10 WBC RBC Hgb Hct MCV MCH MCHC RDW Std Deviation Plt Count MPV Immature Gran % (Auto) Neut % (Auto) Lymph % (Auto) [place] % (Auto) Eos % (Auto) Baso % (Auto) Immature Gran # (Auto) Neut # (Auto) Lymph # (Auto) [place] # (Auto) Eos # (Auto) Baso # (Auto) PT INR APTT (Factor Assay) D-Dimer Sodium 126 L Potassium 4.7 Chloride 97 L Carbon Dioxide 19 L Anion Gap 10 BUN 31 H Creatinine 2.2 H Estimated GFR/1.73 m2 31 BUN/Creatinine Ratio 14 Glucose 318 H Calculated Osmolality 272 Calcium 8.8 Magnesium 1.7 Total Bilirubin 0.30 AST 13 ALT 12 Alkaline Phosphatase 99 Creatine Kinase 50 Troponin T 0.014 Vaz-Y-Mnllzjxhmkw Pept 564 H Total Protein 5.1 L Albumin 2.5 L Globulin 3.0 Albumin/Globulin Ratio 1.0 08/19/16 08/19/16 08/19/16 20:10 20:10 21:50 WBC 9.50 RBC 4.15 L Hgb 11.7 L Hct 34.3 L MCV 82.7 MCH 28.2 MCHC 34.1 RDW Std Deviation 14.0 Plt Count 186 MPV 12.3 H Immature Gran % (Auto) 1.6 H Neut % (Auto) 67.9 Lymph % (Auto) 22.0 [place] % (Auto) 6.4 Eos % (Auto) 1.4 Baso % (Auto) 0.7 Immature Gran # (Auto) 0.15 H Neut # (Auto) 6.45 Lymph # (Auto) 2.09 [place] # (Auto) 0.61 H Eos # (Auto) 0.13 Baso # (Auto) 0.07 PT 12.5 INR 0.90 APTT (Factor Assay) 27.3 D-Dimer 1.36 H Sodium Potassium Chloride Carbon Dioxide Anion Gap BUN Creatinine Estimated GFR/1.73 m2 BUN/Creatinine Ratio Glucose Calculated Osmolality Calcium Magnesium Total Bilirubin AST ALT Alkaline Phosphatase Creatine Kinase 55 Troponin T Lbw-U-Qwpvyhmtuaw Pept Total Protein Albumin Globulin Albumin/Globulin Ratio 08/19/16 21:50 WBC RBC Hgb Hct MCV MCH MCHC RDW Std Deviation Plt Count MPV Immature Gran % (Auto) Neut % (Auto) Lymph % (Auto) [place] % (Auto) Eos % (Auto) Baso % (Auto) Immature Gran # (Auto) Neut # (Auto) Lymph # (Auto) [place] # (Auto) Eos # (Auto) Baso # (Auto) PT INR APTT (Factor Assay) D-Dimer Sodium Potassium Chloride Carbon Dioxide Anion Gap BUN Creatinine Estimated GFR/1.73 m2 BUN/Creatinine Ratio Glucose Calculated Osmolality Calcium Magnesium Total Bilirubin AST ALT Alkaline Phosphatase Creatine Kinase Troponin T 0.011 Zgl-P-Mpgtyzxwpfi Pept Total Protein Albumin Globulin Albumin/Globulin Ratio Orders Category Date Time Status Cardiac Monitoring DIRECTED Care 08/19/16 19:41 Active Saline Loc NOW Care 08/19/16 19:41 Active CHEST-2 VIEWS [RAD] Stat Exams 08/19/16 19:41 Taken CBC WITH ELECTRONIC DIFF [HEME] Stat Lab 08/19/16 20:10 Completed CK PROFILE [SP CHEM] Stat Lab 08/19/16 20:10 Completed CK PROFILE [SP CHEM] Stat Lab 08/19/16 21:50 Completed COMPREHENSIVE METABOLIC PANEL [CHEM] Stat Lab 08/19/16 20:10 Completed D-DIMER PL [COAG] Stat Lab 08/19/16 20:10 Completed MAGNESIUM [CHEM] Stat Lab 08/19/16 20:10 Completed PRO B-NATRIURETIC PEPTIDE Stat Lab 08/19/16 20:10 Completed [address]IME WITH INR PL [COAG] Stat Lab 08/19/16 20:[address] [COAG] Stat Lab 08/19/16 20:10 Completed TROPONIN T Stat Lab 08/19/16 20:10 Completed TROPONIN T Stat Lab 08/19/16 21:50 Completed Aspirin Med 08/19/16 19:41 Discontinued 325 mg PO STAT STA Nitroglycerin Sl [Nitroglycerin] Med 08/19/16 19:41 Active 0.4 mg SL Q5M PRN PRN EKG [EKG] Stat Ther 08/19/16 19:41 Draft EKG [EKG] Stat Ther 08/19/16 21:39 Ordered Result Diagrams: 08/19/16 20:10 08/19/16 20:10 - REASSESSMENT Reassessment #1 Time Reassessed: 21:49 (Pt has elevated ddimer, cp, and sob. His renal function will not support a CTA. We will navdeep to hospitalist and plan for VQ scan tomorrow. I discussed c Dr. Urias who agreed c admission. Also of note is that the pt now has hyponatremia. ) Reassessment #2 Time Reassessed: 22:44 (Second set of cardiac enzymes was not elevated. Discussed admission and plan of care c pt. He agreed and states his chest pain is still present but less. ) - EKG 1 Time of EKG reading by physician:: 20:13 EKG Read and Signed by:: Johnny Chong EKG Interpretation (*Must complete 3 of following elements*): Normal Rate: 56 Rhythm: sinus bradycardia [place]: normal 2 Time of EKG reading by physician:: 22:15 EKG Read and Signed by:: Johnny Chong EKG Interpretation (*Must complete 3 of following elements*): Abnormal Rate: 56 Rhythm: sinus bradycardia [place]: normal - CONSULTS/PCP/HOSPITALIST Notification #1 *Consult/PCP/Hospitalist*: Dr. Urias (Hospitalist) Time Discussed: 21:51 Reason/Comments: Will admit pt after second set of enzymes. Departure - Departure Time of Disposition Decision: 22:45 DIAGNOSIS: Elevated d-dimer, Hyponatremia Chest pain Qualifiers: Chest pain type: unspecified Qualified Code(s): R07.9 - Chest pain, unspecified Disposition: ADMITTED INPATIENT 09 Certified Medical Emergency: Emergent Condition: Stable Referrals and Follow-Ups: Daisy Dent, [Primary Care Provider] - Attestation - Physician/ PANTERA Attestation Patient care was provided by Advanced Practice Provider:: Yes Advanced Practice Provider:: Issa Romero Advanced Practice Provider documentation review:: The Mid-level provider documentation, treatment plan and medical decision making was reviewed by the physician who agrees with all treatment and medical decision making by the MLP. This chart was documented by the indicated scribe, (Nereida Murray Scribe) and accurately reflects the services I performed and decisions made by me, Issa Romero PA, as attested by the provider's signature.
[2016-08-19] MEDS ORDERED: LOVENOX ONE ×2 (22:59→23:00)
--- NOTE | 2016-08-19 23:17 | EKG Report ---
Test Performed on : 08/19/2016 10:15:34 PM Test Reason : 2hr cardiac Blood Pressure : / mmHG Vent. Rate : 056 BPM Atrial Rate : 056 BPM P-R Int : 146 ms QRS Dur : 092 ms QT Int : 420 ms P-R-T Axes : 018 -08 021 degrees QTc Int : 405 ms Sinus bradycardia. Otherwise normal ECG When compared with ECG of 19-AUG-2016 20:13, (Unconfirmed) No significant change was found Unconfirmed Result
[2016-08-20] MEDS ORDERED: MORPHINE IV PRN (06:43)
--- NOTE | 2016-08-20 06:57 | EKG Report ---
Test Performed on : 08/20/2016 06:42:47 AM Test Reason : chest pain Blood Pressure : / mmHG Vent. Rate : 063 BPM Atrial Rate : 063 BPM P-R Int : 156 ms QRS Dur : 094 ms QT Int : 410 ms P-R-T Axes : 056 -11 033 degrees QTc Int : 419 ms Normal sinus rhythm. Normal ECG When compared with ECG of 19-AUG-2016 22:15, (Unconfirmed) No significant change was found Unconfirmed Result
[2016-08-20 07:12] LABS: MANUAL DIFF NEEDED? NO
[2016-08-20 07:16] LABS: BASO% 0.5 % (0.0-0.8); EOS# 0.19 X1000 (0.0-0.7); HEMATOCRIT 35.6 % (42.0-52.0); HEMOGLOBIN 12.2 g/dL (14.0-18.0); IMM GRAN# 0.16 X1000 (0.0-0.04); IMM GRAN% 1.7 % (0.0-0.5); LYMPH# 3.15 X1000 (1.2-3.4); LYMPH% 33.7 % (20.5-51.1); MCH 28.2 PG (27-31); MCHC 34.3 g/dL (33-37); MCV 82.4 FL (81-99); MONO# 0.68 X1000 (0.11-0.59); MONO% 7.3 % (1.7-9.3); MPV 11.7 FL (7.4-10.4); NEUT% 54.8 % (42.2-75.2); PLT 165 X1000 (130-400); RBC 4.32 XMIL (4.7-6.1)
[2016-08-20 07:42] LABS: ALBUMIN 2.6 g/dL (3.5-5.0); CALCIUM 8.8 mg/dL (8.8-10.2); POTASSIUM 4.3 mmol/L (3.5-5.1); TOTAL BILIRUBIN 0.3 mg/dL (0.20-1.00); TOTAL PROTEIN 5.2 g/dL (6.3-8.3)
--- NOTE | 2016-08-20 08:25 | Diag Imaging Result Document ---
PROCEDURE NAME: CHEST-2 VIEWS - 08/19/2016 CHEST X-RAY 2 VIEWS, 08/19/2016: COMPARISON: 08/07/2016. FINDINGS: The lungs are normally expanded and clear. Heart size and mediastinal contours are normal. No pneumothorax or pleural effusion. IMPRESSION: Negative exam.
[2016-08-20] MEDS ORDERED: ZOFRAN ODT PO PRN (09:37)
[2016-08-20] MEDS ORDERED: CATAPRES-TTS-2 TD SCH (09:45)
[2016-08-20] MEDS: REQUIP PO SCH ×2 (11:06→21:26)
[2016-08-20] MEDS: LOPRESSOR PO SCH ×2 (11:07→21:27)
[2016-08-20] MEDS: REGLAN PO SCH ×2 (11:07→15:57)
[2016-08-20] MEDS: DETROL LA PO SCH ×2 (11:07→21:26)
[2016-08-20] MEDS: FLONASE NAS SCH (11:07)
[2016-08-20] MEDS: ZANAFLEX PO SCH ×3 (11:07→21:40)
[2016-08-20] MEDS: HUMALOG DOSE (PARKWAY) SUBQ SCH ×2 (11:44→15:57)
[2016-08-20] MEDS: NORCO-10 PO PRN (11:45)
[2016-08-20] MEDS: NEURONTIN PO SCH ×2 (12:54→17:34)
--- NOTE | 2016-08-20 14:09 | HISTORY AND PHYSICAL ---
PRIMARY CARE PHYSICIAN: Daisy Dent MD, in [place], [place]. CHIEF COMPLAINT: Elevated blood pressure, headache and intermittent substernal chest pain that began around 3 p.m. prior to arriving. HISTORY OF PRESENTING ILLNESS: This is a 56-year-old male who was apparently admitted to this facility on 08/08/2016 with an elevated blood pressure, chest discomfort. He was noted at that time to have mild elevation in his D-dimer at 1.47. Had bilateral lower extremity venous Doppler and V/Q scan; both were negative at that time. States that on Friday he saw his primary care physician because he had been having some elevated blood pressure. She did some adjusting to his medications according to the patient, and he still has continued to have an elevated blood pressure, intermittent substernal chest pain, headache. All that began around 3 p.m. yesterday. States his chest pain was worse when he tried to take a deep breath. States at this time it is improved. Workup in the ER showed that a couple hours after he arrived to the emergency room, his blood pressure jumped up to 208/95. Laboratory data showed he still has an elevation in his D- dimer at 1.36. His BUN is 32 with a creatinine of 2.2, which is around his baseline. He has had negative troponins x2 sets. His sodium level on arrival was 126. So, he is being admitted for further evaluation and treatment. PAST MEDICAL HISTORY: Diabetes type 2, chronic kidney disease, hypertension, hyperlipidemia. He has bilateral diabetic ulcers to the heels that is followed by Dr. Sorto. He currently has weightbearing boot with dressings intact at this time, chronic constipation and migraines. PAST SURGICAL HISTORY: An amputation of his first toe bilaterally, appendectomy, cholecystectomy and a right nephrectomy secondary to renal cell cancer. FAMILY HISTORY: Noncontributory. SOCIAL HISTORY: Currently lives with . Denies any tobacco, alcohol, or illicit drug use. ALLERGIES: Keflex and penicillin. HOME MEDICATIONS: He takes: 1. Norvasc 10 mg p.o. at bedtime. 2. Lipitor 40 mg p.o. at bedtime. 3. Catapres TTS-II transdermally as directed. 4. Cymbalta 60 mg p.o. at bedtime. 5. Flonase nasal spray, 2 sprays inhalation daily. 6. Gabapentin 800 mg p.o. t.i.d. 7. [place] 10 one p.o. q. 6 hours p.r.n. 8. Toujeo 30 units subcutaneous q.a.m. and 80 units subcutaneous q.p.m. 9. Humalog 14 units subcutaneous t.i.d. a.c. 10. Cozaar 100 mg p.o. at bedtime. 11. Reglan 10 mg p.o. t.i.d. a.c. 12. Lopressor 100 mg p.o. b.i.d. 13. Zofran 4 mg p.o. at bedtime p.r.n. 14. Requip 4 mg p.o. b.i.d. 15. Tizanidine 4 mg p.o. q. 6 hours. 16. Detrol LA 2 mg p.o. b.i.d. 17. Desyrel 200 mg p.o. at bedtime. LABORATORY DATA: Showed a white blood cell count of 9.50, hemoglobin 11.7, hematocrit 34.3, platelets 186. PT and INR of 12.5 and 0.90 with a D-dimer of 1.36. This is an improvement from his D-dimer on 08/08 that was 1.47. Sodium was 126, potassium 4.7, chloride 97, CO2 19, BUN of 31, creatinine 2.2, glucose 318, magnesium 1.7. Cardiac enzymes x2 sets have been negative. ProBNP of 564. RADIOLOGICAL DATA: Chest x-ray showed a negative exam. EKG showed normal sinus rhythm at 63. REVIEW OF SYSTEMS: He was positive for a headache, substernal chest pain nonradiating, some mild shortness of breath, elevated blood pressure. Denied any fever, chills, blurred vision, dizziness, abdominal pain, constipation, diarrhea, burning or hurting with urination. PHYSICAL EXAMINATION: VITAL SIGNS: On arrival, he had a temperature of 97.8 degrees, pulse 58, respirations 16, blood pressure 120/79, satting 96% on room air. Approximately 2 hours after he arrived to the ER, his blood pressure became elevated at 208/95. This morning, it is down to 141/70 and he is satting 99% on room air. GENERAL: This is a 56-year-old male, who is lying in the bed and answers questions appropriately. HEENT: Normocephalic and atraumatic. Pupils are equal, round, reactive to light. Extraocular movements are intact. Oropharynx and nares are clear. NECK: Supple. LUNGS: Clear to auscultation bilaterally with equal lung expansion and chest wall movement. HEART: With regular rate and rhythm. No murmurs, rubs, or gallops. ABDOMEN: Soft, nontender, nondistended. Bowel sounds are present x4 quadrants. EXTREMITIES: There is no clubbing, cyanosis, or edema. Patient is noted to have dressings to his diabetic ulcers to bilateral heels with walking boot in place bilaterally. NEUROLOGICAL: The cranial nerves 2-12 are grossly intact. ASSESSMENT: 1. Chest pain. 2. Hypertension. 3. Elevated D-dimer. 4. Hyponatremia. PLAN: He was admitted to the medical unit. It is noted that we did a V/Q scan and bilateral lower extremity venous Doppler approximately 11 days ago that were negative. We will check a lung scan again. We will not do bilateral lower extremities at this time. We will continue his home medicines as previously identified. Morphine 2 mg IV q. 2 hours p.r.n., aspirin 325 mg p.o. daily. It is noted the patient states he had a stress test approximately 10 years ago that was negative. We will consult wound care for his bilateral diabetic foot ulcers. We will recheck a CBC and a BMP in the a.m. We will schedule him for Lexiscan stress test in the a.m. and n.p.o. after midnight. He had a repeat lab this morning that showed his sodium is back to normal at 134, so we will not run anymore fluids at this time. Again, we will recheck labs in the a.m. Dictated by CHEPE Johnson for Prem Schneider MD cc: CHEPE Johnson MD Meredith Pickett, MD ([place])
--- NOTE | 2016-08-20 14:32 | Diag Imaging Result Document ---
PROCEDURE NAME: LUNG SCAN / VQ - 08/19/2016 PULMONARY VENTILATION PERFUSION SCAN: COMPARISON: Chest x-ray 08/19/2016, V/Q scan 08/08/2016. FINDINGS: 37.8 mCi of DTPA was used for inhalation. 5.9 mCi of MAA was used for injection. There is normal localization pattern of both radiotracers. IMPRESSION: Negative exam.
--- NOTE | 2016-08-20 18:20 | PROGRESS NOTE ---
DATE: 08/20/2016 SUBJECTIVE: Today Mr. De La Torre refers to be doing fine. He was admitted yesterday because of chest pain. This is actually not the 1st time patient is having this type of chest pain. He describes this as a pressing chest pain which started yesterday after he had meals. It went on for over 30 minutes. It was squeezing in nature. It radiated to the top part of the left chest and it abated on its own. At that time according to him, his blood pressure was a little over 230/120. He came in to the Emergency Department and he was evaluated and deemed that he is high risk for cardiac issues and needed to be admitted for cardiac risk stratification. Today he refers to be doing a whole lot better. He has not had any more chest pain. OBJECTIVE: Vital signs: Blood pressure currently is 118/59, pulse is 50, respiration is 18, temperature is 98 degrees. General: Mr. De La Torre is a 56-year-old male, morbidly obese, was sitting up in a chair. He did not have any distress. Mucosa is pink and moist. Anicteric and acyanotic. Neck: Neck is supple. Chest: Good air entry bilateral. No crepitations. No rhonchi. Cardiovascular: Regular rate and rhythm. No murmurs, no rubs. No gallops. Abdomen: Soft, distended, but nontender. Extremities: No pedal edema, but the left foot is in a dressing consistent with diabetic ulcers in the past. The right is in orthopedic shoes. MORTGAGE LOAN INTERVIEWER: Patient is alert and oriented x4. LABORATORY DATA: WBC is 9.38, hemoglobin is 12.3, platelet count is 165,000. Chemistry is reviewed. Creatinine is 2.2 which is not new. Bicarb is 19, sodium is 134. ASSESSMENT: 1. Atypical chest pain. So far, ventilation/perfusion scan was negative. The patient was here just about 2 weeks ago for a similar presentation. A ventilation/perfusion scan and lower extremity Doppler were done which were also negative. I think this is probably coronary artery disease which needs risk stratification. I would do a C-reactive protein high sensitivity and also I agree with the stress test. 2. Hypertension. Was remarkably high at the time of presentation. So chest pain could just be precordialgia secondary to high blood pressure. However, we need to make sure there is not any coronary artery disease. That needs to be taking care. 3. Chronic kidney disease stage IIIB noted. 4. Non-anion gap metabolic acidosis consistent with the degree of the renal disease. 5. Diabetic ulcer to the left leg. Patient is getting dressing. GENERAL PLAN: I think Mr. De La Torre is relatively stable. We are going to do a stress test tomorrow or the day after for cardiac risk stratification. Depending on the results, we will give further recommendations. For now, we will continue adequate blood pressure control and also control of his other risk factors, including diabetes and dyslipidemia. cc: Prem Schneider MD MTDD
[2016-08-20] MEDS: LOVENOX SUBQ SCH (21:25)
[2016-08-20] MEDS: NORVASC PO SCH (21:26)
[2016-08-20] MEDS: TOUJEO SOLOSTAR SUBQ SCH (21:26)
[2016-08-20] MEDS: LIPITOR PO SCH (21:26)
[2016-08-20] MEDS: DESYREL PO SCH (21:27)
[2016-08-20] MEDS: COZAAR PO SCH (21:27)
[2016-08-20] MEDS: CYMBALTA PO SCH (21:27)
[2016-08-21] MEDS: ZANAFLEX PO SCH ×4 (02:52→22:24)
[2016-08-21 06:23] LABS: MANUAL DIFF NEEDED? NO
--- NOTE | 2016-08-21 06:28 | EKG Report ---
Test Performed on : 08/21/2016 06:08:49 AM Test Reason : cp Blood Pressure : / mmHG Vent. Rate : 055 BPM Atrial Rate : 055 BPM P-R Int : 154 ms QRS Dur : 084 ms QT Int : 418 ms P-R-T Axes : 026 -13 011 degrees QTc Int : 399 ms Sinus bradycardia. Otherwise normal ECG When compared with ECG of 20-AUG-2016 06:42, ST now depressed in Inferior leads Confirmed by Johnny Chong MD ([id number]) on 08/23/2016 8:18:30 AM
[2016-08-21 06:44] LABS: BASO% 0.8 % (0.0-0.8); EOS# 0.21 X1000 (0.0-0.7); EOS% 2.4 % (0.0-10.0); HEMATOCRIT 34.6 % (42.0-52.0); HEMOGLOBIN 11.6 g/dL (14.0-18.0); IMM GRAN# 0.14 X1000 (0.0-0.04); IMM GRAN% 1.6 % (0.0-0.5); LYMPH# 2.93 X1000 (1.2-3.4); LYMPH% 33.8 % (20.5-51.1); MCH 27.9 PG (27-31); MCHC 33.5 g/dL (33-37); MCV 83.2 FL (81-99); MONO# 0.63 X1000 (0.11-0.59); MONO% 7.3 % (1.7-9.3); MPV 12.6 FL (7.4-10.4); NEUT% 54.1 % (42.2-75.2); PLT 175 X1000 (130-400); RBC 4.16 XMIL (4.7-6.1)
[2016-08-21 07:00] LABS: CALCIUM 8.9 mg/dL (8.8-10.2); POTASSIUM 4.5 mmol/L (3.5-5.1)
[2016-08-21] MEDS: HUMALOG DOSE (PARKWAY) SUBQ SCH ×3 (07:56→16:13)
[2016-08-21] MEDS: REGLAN PO SCH ×3 (07:57→16:14)
[2016-08-21] MEDS: TOUJEO SOLOSTAR SUBQ SCH ×2 (09:51→22:25)
[2016-08-21] MEDS: REQUIP PO SCH ×2 (09:52→22:24)
[2016-08-21] MEDS: FLONASE NAS SCH (09:52)
[2016-08-21] MEDS: LOPRESSOR PO SCH ×2 (09:53→22:23)
[2016-08-21] MEDS: NEURONTIN PO SCH ×3 (09:53→16:14)
[2016-08-21] MEDS: DETROL LA PO SCH ×2 (09:53→22:25)
[2016-08-21] MEDS: ASPIRIN PO SCH (09:53)
[2016-08-21 10:44] LABS: CALCIUM 9.1 mg/dL (8.8-10.2)
--- NOTE | 2016-08-21 15:06 | PROGRESS NOTE ---
DATE: 08/21/2016 SUBJECTIVE: Today Mr. De La Torre referred to be doing fine. Denies any chest pain. OBJECTIVE: Vitals: Blood pressure is 135/62, pulse of 61, respiration is 16, temperature is 98.2 degrees. General: Mr. De La Torre is a 56-year-old male. He is in bed, not seemingly distressed. HEENT: Mucosa is pink and moist. Anicteric. Acyanotic. Neck: Supple. Chest: Clear. Cardiovascular: Regular rate and rhythm. No murmurs, no rubs. No gallops. Abdomen: Soft, distended, but nontender. Bowel sounds are present. Extremities: No pedal edema. There is ulcer to the heel on the left leg which is in sterile dressings. The right big toe on the left leg is amputated and the big toe on the right leg has a distal amputation. DIRECTOR CAREER SERVICES: Patient is alert and oriented x4. He has no focal neurological deficit. LABORATORY DATA: WBC is 8.64, hemoglobin is 11.6, platelet count of 175,000. Sodium is 132, potassium is 4.5, chloride is 102, bicarbonate is 20, BUN is 32, creatinine is 2.2. ASSESSMENT: 1. Atypical chest pain. V/Q scan is negative. Troponins so far have been negative. Patient is pending a stress test which will be done tomorrow. 2. Hypertension. Patient's blood pressure is now a whole lot better. I understand he had a blood pressure of over 230 systolic at home. I think he is not very compliant with his medications. 3. Chronic kidney disease stage 3B noted. 4. Non-anion gap metabolic acidosis consistent with the degree of renal disease. We are going to start the patient on sodium bicarbonate oral. 5. Diabetic ulcers to the left leg. The patient is getting evaluated by the wound care team. 6. Morbid obesity. Patient has been advised. 7. Hopefully we will be able to discharge the patient home if the stress test is negative tomorrow. cc: Prem Schneider MD
[2016-08-21] MEDS: LIPITOR PO SCH (22:23)
[2016-08-21] MEDS: CYMBALTA PO SCH (22:23)
[2016-08-21] MEDS: DESYREL PO SCH (22:23)
[2016-08-21] MEDS: NORVASC PO SCH (22:25)
[2016-08-21] MEDS: COZAAR PO SCH (22:25)
[2016-08-21] MEDS: VITAMIN D PO SCH (22:25)
[2016-08-21] MEDS: LOVENOX SUBQ SCH (22:25)
[2016-08-22] MEDS: ZANAFLEX PO SCH ×4 (05:16→21:28)
[2016-08-22] MEDS: HUMALOG DOSE (PARKWAY) SUBQ SCH ×3 (06:59→17:12)
[2016-08-22] MEDS: REGLAN PO SCH ×3 (07:00→17:13)
[2016-08-22] MEDS: LOPRESSOR PO SCH ×2 (10:32→21:27)
[2016-08-22] MEDS ORDERED: LEXISCAN ONE (10:41)
[2016-08-22] MEDS ORDERED: INSULIN PEN NEEDLES ONE ×2 (10:53→21:38)
[2016-08-22] MEDS: TOUJEO SOLOSTAR SUBQ SCH ×2 (10:55→21:27)
[2016-08-22] MEDS: ASPIRIN PO SCH (10:56)
[2016-08-22] MEDS: REQUIP PO SCH ×2 (10:56→21:27)
[2016-08-22] MEDS: FLONASE NAS SCH (10:56)
[2016-08-22] MEDS: NEURONTIN PO SCH ×3 (10:56→17:13)
[2016-08-22] MEDS: VITAMIN D PO SCH (10:56)
[2016-08-22] MEDS: DETROL LA PO SCH ×2 (10:57→21:28)
--- NOTE | 2016-08-22 14:38 | PROGRESS NOTE ---
DATE: 08/22/2016 SUBJECTIVE: Today Mr. De La Torre referred to be fine. I went in earlier on to see him but he was doing his stress test. This afternoon he says he is doing okay. Does not have any complaints. OBJECTIVE: Vital signs: Blood pressure is 140/92, pulse of 50, respiration is 16, temperature 97.8 degrees. General Exam: Mr. De La Torre is a 56-year-old, male, morbidly obese. He was in bed. He did not seem to be in any distress. HEENT: Mucosa is pink and moist. Anicteric. Acyanotic. Neck: Supple. Chest: Good air entry bilateral. No crepitations. No rhonchi. Cardiovascular: Regular rate and rhythm. Abdomen: Soft, distended, but nontender. Bowel sounds are present. Extremities: No pedal edema. There are old amputation changes on the legs. LABORATORY DATA: Sodium: We do not have any for today. Vitamin D is 5, remarkably low. ASSESSMENT: 1. Atypical chest pain. V/Q scan was negative. Troponins so far have also been negative. Patient did a stress test today. If that is also negative we will be able to discharge the patient. 2. Hypertension. This is better controlled over here. 3. Chronic kidney disease stage 3B. Stable. 4. Non-anion gap metabolic acidosis consistent with the degree of renal disease. Patient is currently on sodium bicarbonate p.o. 5. Diabetic ulcers to the left heel. Patient is getting wound care. 6. Morbid obesity. 7. Vitamin D deficiency. We will continue to replace this. PLAN: So in general, Mr. De La Torre is a 56-year-old male who came to the emergency department because of chest pain. He has been here before about 2 weeks ago for a similar chest pain so it was deemed necessary to do cardiac risk stratification for coronary artery disease with a stress test which patient did today. Hopefully we will get a result today. If it is normal we will discharge her for her to go home and continue with her regular medications for risk factor management. The patient has been having also some bradycardia with pulse, some were around 48, most of it is in the 50s. He is on a very big dose of the beta marianna. I would therefore cut down on his beta marianna. cc: Prem Schneider MD
--- NOTE | 2016-08-22 18:48 | Diag Imaging Result Document ---
PROCEDURE NAME: MYOCARDIAL PERF SCAN, STR/REST - 08/22/2016 IDENTIFYING INFORMATION: A 56-year-old male, weighs 337 pounds. STUDY: Rest-stress Lexiscan myocardial perfusion study. INDICATION: Chest pain. DESCRIPTION: The patient came into the Nuclear Lab at [facility], received a rest injection of technetium 99 sestamibi 15.7 millicuries. Multiple tomographic views of the cardiac structure were obtained at rest. Subsequently the patient underwent Lexiscan infusion under Dr. Arevalo's supervision. At peak infusion, injected with technetium 99 sestamibi 46.1 millicuries. Multiple tomographic views of the cardiac structure were obtained following the completion of the protocol. SUMMARY OF MYOCARDIAL PERFUSION PORTION OF THE STUDY: Poststress tomographic views of the left ventricle show normal homogeneous distribution of radiotracer throughout the entire left ventricular myocardium. There is no evidence of any postexercise defect. The rest images essentially show normal perfusion. Polar plots reveal the same. There is no convincing evidence of neither inducible ischemia nor myocardial scar. Gated SPECT shows normal left ventricular systolic function. Ejection fraction is estimated at 59% with normal ventricular volumes. No wall motion abnormality. The lung-heart ratio is normal. TID is normal. IMPRESSION: In summary, this study shows: 1. Essentially normal poststress myocardial perfusion scan. There is no scintigraphic evidence of pharmacologically induced myocardial ischemia utilizing the Lexiscan protocol. 2. Normal left ventricular systolic function. Ejection fraction estimated at 59% with normal ventricular volumes and no wall motion abnormality. This study would indicate a low risk for ischemic events. Clinical correlation recommended. cc: MD Prem Pastrana MD Alexis R. Penot, MD
[2016-08-22] MEDS: LOVENOX SUBQ SCH (21:27)
[2016-08-22] MEDS: NORVASC PO SCH (21:27)
[2016-08-22] MEDS: COZAAR PO SCH (21:28)
[2016-08-22] MEDS: DESYREL PO SCH (21:28)
[2016-08-22] MEDS: LIPITOR PO SCH (21:28)
[2016-08-22] MEDS: CYMBALTA PO SCH (21:28)
[2016-08-23] MEDS: ZANAFLEX PO SCH ×3 (03:51→11:08)
[2016-08-23] MEDS: NORCO-10 PO PRN (03:54)
[2016-08-23 07:03] LABS: CALCIUM 8.3 mg/dL (8.8-10.2); POTASSIUM 4.7 mmol/L (3.5-5.1)
[2016-08-23] MEDS: HUMALOG DOSE (PARKWAY) SUBQ SCH ×2 (08:10→12:33)
[2016-08-23] MEDS: FLONASE NAS SCH (08:11)
[2016-08-23] MEDS: TOUJEO SOLOSTAR SUBQ SCH (08:11)
[2016-08-23] MEDS: REQUIP PO SCH (08:11)
[2016-08-23] MEDS: ASPIRIN PO SCH (08:12)
[2016-08-23] MEDS: VITAMIN D PO SCH (08:12)
[2016-08-23] MEDS: REGLAN PO SCH ×2 (08:12→12:34)
[2016-08-23] MEDS: LOPRESSOR PO SCH (08:12)
[2016-08-23] MEDS: NEURONTIN PO SCH ×2 (08:12→12:34)
[2016-08-23] MEDS: DETROL LA PO SCH (08:12)
[2016-08-23 11:08] VITALS: BP 145/72
--- NOTE | 2016-08-23 15:18 | GRADED EXERCISE REPORT ---
DATE: 08/22/2016 INDICATION: Chest pain. REQUESTING PHYSICIAN: Dr. Schneider. FINDINGS: Baseline EKGs showed some ST elevation in 1 and aVL, less than 1 mm maybe, just J-point elevation. T-wave inversion in lead 2. Baseline heart rate 81. Baseline blood pressure 132/88. He was infused with Lexiscan 0.4 mg per protocol. No EKG changes were noted. He had no significant change in his vital signs and clinically demonstrated no chest pain, dyspnea. Max heart rate 64, max blood pressure 139/77. Tolerated procedure without difficulty. IMPRESSION: The test was felt to be clinically and electrically negative. Myocardial perfusion will be reported separately. cc: Dale Arevalo MD
--- NOTE | 2016-08-23 16:51 | DISCHARGE SUMMARY ---
ADMISSION DATE: 08/19/2016 DISCHARGE DATE: 08/23/2016 ADMISSION DIAGNOSES: 1. Chest pain. 2. Hypertension. 3. Elevated D-dimer. 4. Hyponatremia. DISCHARGE DIAGNOSES: 1. Chest pain resolved. 2. Hypertension. 3. Elevated D-dimer. Negative CTA and bilateral lower extremity venous Doppler. 4. Hyponatremia resolved. SUMMARY OF FINDINGS: This is a 56-year-old male who has had a previous admission for chest discomfort, elevated blood pressure and an elevated D-dimer. He had a bilateral lower extremity venous Doppler and V/Q scan approximately 11 days ago that were negative. He states that he saw his primary care physician this past Friday because he had been having some elevated blood pressure issues. She adjusted his medications but he continued to have elevated blood pressure and intermittent substernal chest pain with a headache. He states his chest pain is worse when he tries to take a deep breath. In the emergency room his blood pressure jumped up to 208/95. D-dimer was actually decreased from his previous admission down to 1.36, BUN was 32 with a creatinine of 2.2 which is around his baseline. He had negative troponins. He was admitted. We did a lung V/Q scan that showed a negative examination. We did a myocardial perfusion scan on 08/22/2016 that showed an essentially normal post-stress myocardial perfusion scan with no sonographic evidence of pharmacologically induced myocardial ischemia, normal left ventricular systolic function with an estimated ejection fraction at 59%. It is felt that he can now safely be discharged home. MEDICATIONS: 1. Norvasc 10 mg p.o. at bedtime. 2. Aspirin 325 mg p.o. daily. 3. Lipitor 40 mg p.o. at bedtime. 4. Vitamin D3, 1000 units p.o. daily. 5. Catapres TTS-2 transdermally as directed. 6. Cymbalta 60 mg p.o. at bedtime. 7. Flonase nasal spray daily. 8. Gabapentin 800 mg p.o. t.i.d. 9. Burnside 10, 1 p.o. q.6 hours p.r.n. 10. Toujeo 80 units subcutaneous at bedtime and 30 units subcutaneous q.a.m. 11. Humalog 14 units subcutaneous t.i.d. before meals. 12. Losartan 100 mg p.o. at bedtime. 13. Reglan 10 mg p.o. t.i.d. before meals. 14. Metoprolol 50 mg p.o. b.i.d. 15. Zofran 4 mg p.o. q.6 hours p.r.n. 16. Requip 4 mg p.o. b.i.d. 17. Zanaflex 4 mg p.o. q.6 hours. 18. Detrol LA 2 mg p.o. b.i.d. 19. Trazodone 200 mg p.o. at bedtime. 20. Lipitor 40 mg p.o. at bedtime. FOLLOWUP: 1. He will follow up with his primary care physician in 1 week and he was set up for home health to follow him as well. 2. All discharge instructions were reviewed with the patient. He verbalized understanding. DISCHARGE TIME: 35 minutes. Dictated by CHEPE Johnson for Yair Bell MD cc: DO Iwona Mcnally CRNP Omar J. Sosa-Chirinos, MD
== END 2016-08-23 13:47 | disposition home health service (06) ==
LOC: P.ED 18:53 → SUATTDRO 23:30 → P.EDIPHOLD 23:30 → P.MEDSURG 08-20 08:25
PROVIDERS: ATTEND Internal Medicine

== ENCOUNTER 2016-12-01 21:54 | Inpatient (IN) ==
[2016-12-01] MEDS ORDERED: ASPIRIN PO STA (22:21)
--- NOTE | 2016-12-01 22:24 | EKG Report ---
Test Performed on : 12/01/2016 10:10:21 PM Test Reason : CHEST PAIN Blood Pressure : / mmHG Vent. Rate : 062 BPM Atrial Rate : 062 BPM P-R Int : 156 ms QRS Dur : 090 ms QT Int : 422 ms P-R-T Axes : 021 -11 022 degrees QTc Int : 428 ms Normal sinus rhythm. Normal ECG When compared with ECG of 24-OCT-2016 16:40, No significant change was found Unconfirmed Result
[2016-12-01 22:42] LABS: MANUAL DIFF NEEDED? NO
[2016-12-01 22:45] LABS: BASO% 0.8 % (0.0-0.8); EOS# 0.25 X1000 (0.0-0.7); EOS% 2.5 % (0.0-10.0); HEMATOCRIT 36.5 % (42.0-52.0); HEMOGLOBIN 12.9 g/dL (14.0-18.0); IMM GRAN# 0.18 X1000 (0.0-0.04); IMM GRAN% 1.8 % (0.0-0.5); LYMPH# 2.53 X1000 (1.2-3.4); MCH 29.2 PG (27-31); MCHC 35.3 g/dL (33-37); MCV 82.6 FL (81-99); MONO# 0.75 X1000 (0.11-0.59); MONO% 7.4 % (1.7-9.3); MPV 11.9 FL (7.4-10.4); NEUT% 62.5 % (42.2-75.2); PLT 161 X1000 (130-400); RBC 4.42 XMIL (4.7-6.1)
[2016-12-01 22:58] LABS: INR 0.88 (0.86-1.15); PROTIME 12.3 Seconds (12.1-15.5)
[2016-12-01 22:59] LABS: PTT PL 27.7 Seconds (22.6-43.9)
[2016-12-01 23:15] LABS: ALBUMIN 2.6 g/dL (3.5-5.0); CALCIUM 8.5 mg/dL (8.8-10.2); MAGNESIUM 1.8 mg/dL (1.5-2.7); POTASSIUM 3.7 mmol/L (3.5-5.1); TOTAL BILIRUBIN 0.3 mg/dL (0.20-1.00)
[2016-12-02] MEDS ORDERED: LANTUS INSULIN (PARKWAY) SUBQ ONE (00:02)
[2016-12-02] MEDS ORDERED: COZAAR PO ONE (00:04)
[2016-12-02] MEDS ORDERED: HUMALOG (PARKWAY) SUBQ ONE (00:04)
--- NOTE | 2016-12-02 00:18 | EKG Report ---
Test Performed on : 12/02/2016 00:13:53 AM Test Reason : pain Blood Pressure : / mmHG Vent. Rate : 062 BPM Atrial Rate : 062 BPM P-R Int : 140 ms QRS Dur : 090 ms QT Int : 426 ms P-R-T Axes : 008 -22 006 degrees QTc Int : 432 ms Normal sinus rhythm. Minimal voltage criteria for LVH, may be normal variant Borderline ECG When compared with ECG of 01-DEC-2016 22:10, (Unconfirmed) No significant change was found Unconfirmed Result
[2016-12-02] MEDS ORDERED: LOVENOX 1 MG/KG SUBQ ONE (02:02)
[2016-12-02] MEDS ORDERED: NS 1,000 ML IV ONE (02:03)
[2016-12-02] MEDS ORDERED: ZOFRAN IV PRN (02:03)
[2016-12-02] MEDS ORDERED: TYLENOL PO PRN (02:03)
[2016-12-02] MEDS ORDERED: LOVENOX ONE ×2 (02:40)
--- NOTE | 2016-12-02 06:14 | EKG Report ---
Test Performed on : 12/02/2016 05:50:09 AM Test Reason : C/P Blood Pressure : / mmHG Vent. Rate : 057 BPM Atrial Rate : 000 BPM P-R Int : 000 ms QRS Dur : 110 ms QT Int : 454 ms P-R-T Axes : 000 -20 -09 degrees QTc Int : 441 ms sinus bradycardia Possible Inferior infarct , age undetermined Abnormal ECG When compared with ECG of 02-DEC-2016 00:13, (Unconfirmed) Junctional rhythm. has replaced Sinus rhythm. ST now depressed in Lateral leads Confirmed by Johnny Chong MD ([id number]) on 12/09/2016 10:21:53 PM
--- NOTE | 2016-12-02 07:21 | Diag Imaging Result Doc PS360 ---
EXAM: CHEST-2 VIEWS - 12/01/2016 HISTORY: CP TECHNIQUE: Chest two views COMPARISON: 10/24/2016 and 08/19/2016 FINDINGS: Heart size is normal. The lungs appear clear. There is no pleural effusion or pneumothorax identified. IMPRESSION: No evidence of acute disease. Electronically signed by Chencho Heredia 12/02/2016 7:19 AM
--- NOTE | 2016-12-02 10:48 | EKG Report ---
Test Performed on : 12/02/2016 10:08:40 AM Test Reason : ROUTINE Blood Pressure : / mmHG Vent. Rate : 056 BPM Atrial Rate : 056 BPM P-R Int : 142 ms QRS Dur : 092 ms QT Int : 418 ms P-R-T Axes : 069 071 061 degrees QTc Int : 403 ms Sinus bradycardia. with premature atrial complexes. in a pattern of bigeminy. Otherwise normal ECG When compared with ECG of 02-DEC-2016 05:54, (Unconfirmed) Sinus rhythm. has replaced Junctional rhythm. Questionable change in QRS axis Confirmed by Johnny Chong MD ([id number]) on 12/09/2016 10:24:28 PM
--- NOTE | 2016-12-02 11:09 | EKG Report ---
Test Performed on : 12/02/2016 05:54:50 AM Test Reason : ROUTINE Blood Pressure : / mmHG Vent. Rate : 060 BPM Atrial Rate : 416 BPM P-R Int : 000 ms QRS Dur : 100 ms QT Int : 442 ms P-R-T Axes : 000 -17 017 degrees QTc Int : 442 ms Junctional rhythm. Minimal voltage criteria for LVH, may be normal variant Abnormal ECG When compared with ECG of 02-DEC-2016 05:50, (Unconfirmed) Borderline criteria for Inferior infarct are no longer present ST elevation has replaced ST depression in Lateral leads Nonspecific T wave abnormality, improved in Inferior leads Confirmed by Johnny Chong MD ([id number]) on 12/09/2016 10:24:22 PM
[2016-12-02] MEDS ORDERED: ZOFRAN ODT PO PRN (11:36)
[2016-12-02] MEDS ORDERED: CATAPRES-TTS-2 TD SCH (11:45)
[2016-12-02] MEDS: NS 1,000 ML IV PRN ×2 (12:29→23:56)
[2016-12-02 13:39] LABS: CALCIUM 8.2 mg/dL (8.8-10.2); POTASSIUM 3.8 mmol/L (3.5-5.1)
[2016-12-02] MEDS: NEURONTIN PO SCH ×2 (14:24→21:21)
--- NOTE | 2016-12-02 15:11 | HISTORY AND PHYSICAL ---
CHIEF COMPLAINT: Chest pain. HISTORY OF PRESENT ILLNESS: This is a 56-year-old male who presented to the emergency room complaining of chest pain that started about an hour prior to arrival. He stated this began at rest. He describes a sharp pain in his central chest with no exacerbating or alleviating factors. He denied any accompanying symptoms. He was noted to have a D-dimer of 5.5. Chest x-ray revealed clear lungs. No pleural effusion or pneumothorax. A review of his past records, he was admitted 08/08/2016 as well as 08/19/2016 both with the same chest pain having V/Q lung scans that were negative for pulmonary embolus at both admissions, however, his D-dimer has remained elevated from December 2015 until today. He was 1.07 in December, in July 2016 at 1.47, in August 2016 at 1.36 and today he is 5.54. He denies any injury, any leg pain, any recent travel or abnormally long sedentary periods. PAST MEDICAL HISTORY: Chronic kidney disease, diabetes type 2, hypertension, hyperlipidemia, bilateral diabetic ulcers to his heels that have been followed by Dr. Sorto. PAST SURGICAL HISTORY: Amputation of his first toe bilaterally, appendectomy, cholecystectomy, right nephrectomy secondary to renal cell cancer. SOCIAL HISTORY: He lives with his . He denies alcohol, tobacco or illicit drug use. ALLERGIES: Keflex and penicillin. HOME MEDICATIONS: A list will be obtained. REVIEW OF SYSTEMS: A 14 point review of systems is discussed with the patient with pertinent positives stated in HPI. He denied any shortness of breath, PND, orthopnea, palpitations, dizziness, syncope, fevers, chills, nausea, vomiting, diarrhea, constipation, black or bloody vomitus, black or bloody stools, hematuria or dysuria. PHYSICAL EXAMINATION: GENERAL: This is a 56-year-old male who is sitting up in the bed, in no distress. VITAL SIGNS: Blood pressure is 138/72 with a heart rate of 63, respirations are 20, temperature is 98.8 degrees with room air saturations of 100%. HEENT: Head is normocephalic, atraumatic. Pupils equal, round, reactive to light. EOMs are intact. Sclerae anicteric. Mucous membranes are moist. NECK: Supple with trachea midline. CARDIOVASCULAR: Regular rate and rhythm. S1 and S2 appreciated. No rubs, murmurs, or gallops. PULMONARY: Breath sounds are clear with no increased work of breathing noted. He has equal lung expansion and chest wall movement noted. GASTROINTESTINAL: Abdomen is soft, nontender, nondistended with bowel sounds in all 4 quadrants. EXTREMITIES: No clubbing, cyanosis, or edema. Calves are nontender. NEUROLOGIC: He is alert and oriented x3. DIAGNOSTICS: WBC is 10.1 with hemoglobin 12.9, hematocrit 36.5, and platelets of 161,000. D- dimer is 5.54. Sodium is 127, potassium 3.7, BUN 31, creatinine 3.2, with a glucose of 352. Troponin 0.051, 0.056, 0.077. Lower extremity Doppler and V/Q scan are pending. ASSESSMENT AND PLAN: This is a 56-year-old male who presented to the emergency room complaining of chest pain. 1. Chest pain. 2. Hypertension. 3. Elevated D-dimer. 4. Hyponatremia. 5. Acute kidney injury on chronic kidney disease. PLAN: He will be admitted to the hospital and placed on telemetry. We will identify and continue his home medications. We will recheck a BMP. We will obtain a lower extremity Doppler as well as a V/Q lung scan. We will identify his home medications and hold any renal toxic medications. We will continue with gentle hydration. Of note he did have an echocardiogram performed in September 2016 which revealed diastolic dysfunction with EF of 60%. He also had a negative Lexiscan in August. Dictated by CHEPE Muñoz for Constantine Urias MD cc: CHEPE Muñoz MD
[2016-12-02] MEDS: HUMALOG DOSE (PARKWAY) SUBQ SCH (15:42)
[2016-12-02] MEDS: REGLAN PO SCH (17:16)
[2016-12-02] MEDS ORDERED: VANCOMYCIN IV PER PHARMACY MISC SCH (18:00)
[2016-12-02] MEDS ORDERED: ZOSYN 3.375 GM/NS 3.375 GM/50 ML IVPB IV SCH (18:00)
--- NOTE | 2016-12-02 18:24 | Diag Imaging Result Doc PS360 ---
EXAM: LUNG SCAN / VQ INDICATION: persistent elevated INR, now increasing TECHNIQUE: COMPARISON: 08/20/2016 FINDINGS: There is a potential small perfusion defect with no definite matching on the ventilation portion of the scan that can be seen on the left lateral and TELUGU projections. This appears to involve the lingular segments of the left upper lobe. No other discrete perfusion defect is appreciated. The ventilation portion of the scan is grossly unremarkable. IMPRESSION: Small unmatched perfusion defect appearing to involve the lingular segment of the left upper lobe. In the right clinical scenario, this suggests a high probability of pulmonary embolism. Electronically signed by Issa Lorenzo 12/02/2016 6:22 PM
[2016-12-02] MEDS: LOVENOX SUBQ SCH (19:04)
--- NOTE | 2016-12-02 19:24 | Extremity Venous Study ---
EXAM: Venous U/S Bilateral Legs INDICATION: elevated ddimer TECHNIQUE: COMPARISON: 08/08/2016 FINDINGS: There are acute filling defects consistent with deep venous thrombosis involving the popliteal vein, posterior tibial vein, and peroneal veins on the left. The common femoral vein and superficial femoral vein on the left are patent. There is also superficial thrombus in the lesser saphenous vein on the left. There is normal Doppler flow, compressibility, and augmentation involving the common femoral vein, superficial femoral vein, popliteal vein, posterior tibial vein, and peroneal veins on the right. There is no evidence of venous thrombosis involving the right lower extremity. IMPRESSION: 1.Acute deep venous stenosis involving the left popliteal vein, left posterior tibial vein, and the left peroneal veins. 2.Superficial thrombosis involving the lesser saphenous vein on the left. Electronically signed by Issa Lorenzo 12/02/2016 7:21 PM
[2016-12-02] MEDS ORDERED: VANCOMYCIN 2,500 MG in NS 500 ML IV SCH (20:00)
[2016-12-02] MEDS ORDERED: INSULIN PEN NEEDLES ONE (21:18)
[2016-12-02] MEDS: TOUJEO SOLOSTAR SUBQ SCH (21:19)
[2016-12-02] MEDS: COZAAR PO SCH (21:20)
[2016-12-02] MEDS: REQUIP PO SCH (21:20)
[2016-12-02] MEDS: DESYREL PO SCH (21:20)
[2016-12-02] MEDS: LIPITOR PO SCH (21:20)
[2016-12-02] MEDS: LOPRESSOR PO SCH (21:21)
[2016-12-02] MEDS: DETROL LA PO SCH (21:21)
[2016-12-03] MEDS: REGLAN PO SCH ×3 (06:36→16:00)
[2016-12-03] MEDS: NEURONTIN PO SCH ×3 (06:36→22:26)
[2016-12-03] MEDS: HUMALOG DOSE (PARKWAY) SUBQ SCH ×3 (06:36→15:51)
[2016-12-03] MEDS: LOVENOX SUBQ SCH ×2 (06:36→17:44)
[2016-12-03 06:53] LABS: HEMATOCRIT 35.8 % (42.0-52.0); HEMOGLOBIN 12.3 g/dL (14.0-18.0); MCH 28.5 PG (27-31); MCHC 34.4 g/dL (33-37); MCV 83.1 FL (81-99); MPV 12.5 FL (7.4-10.4); RBC 4.31 XMIL (4.7-6.1)
[2016-12-03 07:18] LABS: ALBUMIN 2.3 g/dL (3.5-5.0); CALCIUM 8.3 mg/dL (8.8-10.2); POTASSIUM 3.8 mmol/L (3.5-5.1); TOTAL BILIRUBIN 0.3 mg/dL (0.20-1.00); TOTAL PROTEIN 5.1 g/dL (6.3-8.3)
[2016-12-03] MEDS ORDERED: COUMADIN PO ONE (08:23)
[2016-12-03] MEDS: REQUIP PO SCH ×2 (08:35→21:01)
[2016-12-03] MEDS: VITAMIN D PO SCH (08:36)
[2016-12-03] MEDS: LOPRESSOR PO SCH ×2 (08:36→21:02)
[2016-12-03] MEDS: BUSPAR PO SCH (08:36)
[2016-12-03] MEDS: PROZAC PO SCH (08:36)
[2016-12-03] MEDS: TOUJEO SOLOSTAR SUBQ SCH ×2 (08:36→21:03)
[2016-12-03] MEDS: DETROL LA PO SCH ×2 (08:36→21:02)
[2016-12-03] MEDS: FLONASE NAS SCH (09:59)
--- NOTE | 2016-12-03 12:42 | PROGRESS NOTE ---
DATE: 12/03/2016 SUBJECTIVE: Patient without any new complaints. Denies any current chest pains or palpitations. Denies any fevers or chills. Notes that he has not been out of bed. OBJECTIVE: Vital Signs: Temperature 97, pulse 58, respiratory rate 16, blood pressure 182/70 and 130/77, saturation 99% on room air. General: Patient is a morbidly obese male who is currently in no respiratory distress. He is lying flatly in the bed. HEENT: Normocephalic, atraumatic. OLU. Neck: Supple. Cardiovascular: Regular rate. Chest: Clear. Abdomen: Soft, obese, nondistended. Extremities: Moves all extremities. LABORATORIES: Hemoglobin and hematocrit 12 and 35. Sodium 134, BUN 26, creatinine 2.5, creatinine clearance has improved slightly to 27, glucose 241, albumin 2.3. ASSESSMENT: 1. Moderate protein calorie malnutrition. 2. Morbid obesity. 3. Acute on chronic renal failure. Creatinine continues to improve. He is currently relatively back to his baseline. 4. Hyponatremia, resolved. 5. Deep vein thrombosis, left lower extremity. PLAN: As the patient, unfortunately, has chronic kidney disease, Xarelto and Eliquis do not appear to be good options. We will start him on Coumadin and continue to follow PT/INRs. . cc: Constantine Urias MD
[2016-12-03] MEDS: COUMADIN PO SCH (21:02)
[2016-12-03] MEDS: DESYREL PO SCH (21:02)
[2016-12-03] MEDS: COZAAR PO SCH (21:02)
[2016-12-03] MEDS: LIPITOR PO SCH (21:02)
[2016-12-04] MEDS: NEURONTIN PO SCH ×3 (06:01→21:32)
[2016-12-04] MEDS: LOVENOX SUBQ SCH ×2 (06:01→18:37)
[2016-12-04 06:33] LABS: INR 0.93 (0.86-1.15); PROTIME 12.8 Seconds (12.1-15.5)
[2016-12-04] MEDS: LOPRESSOR PO SCH (08:40)
[2016-12-04] MEDS: BUSPAR PO SCH (08:40)
[2016-12-04] MEDS: PROZAC PO SCH (08:40)
[2016-12-04] MEDS: REGLAN PO SCH ×3 (08:40→16:44)
[2016-12-04] MEDS: DETROL LA PO SCH ×2 (08:40→21:32)
[2016-12-04] MEDS: VITAMIN D PO SCH (08:40)
[2016-12-04] MEDS: REQUIP PO SCH ×2 (08:40→21:31)
[2016-12-04] MEDS: HUMALOG DOSE (PARKWAY) SUBQ SCH ×3 (08:41→16:50)
[2016-12-04] MEDS: TOUJEO SOLOSTAR SUBQ SCH ×2 (08:41→21:33)
[2016-12-04] MEDS: FLONASE NAS SCH (08:42)
[2016-12-04] MEDS ORDERED: NORVASC PO SCH (09:00)
[2016-12-04] MEDS: NORCO-10 PO PRN (11:44)
--- NOTE | 2016-12-04 15:11 | PROGRESS NOTE ---
DATE: 12/04/2016 SUBJECTIVE: The patient has no complaints. He denies chest pain or palpitations, fever, chills, shortness of breath or cough. OBJECTIVE: Vital Signs: Blood pressure is 121/75, with a heart rate of 54, respirations are 18, temperature is 98.7 degrees oral, with oxygen saturations of 98%-99%. Cardiovascular: Regular rate and rhythm. S1, S2 appreciated. Pulmonary: Breath sounds are clear with no increased work of breathing noted. Gastrointestinal: Abdomen is soft, nontender, nondistended, with bowel sounds in all 4 quadrants. Extremities: No clubbing, cyanosis, or edema. Calves nontender. Pulses are palpable x4. LABS: INR is 0.93. ASSESSMENT: 1. Deep venous thrombosis left lower extremity. 2. Acute on chronic renal failure. His creatinine is 2.5, he is back to his baseline of 2.2 to 2.3 over the last year. 3. Hyponatremia. Resolved. 4. Morbid obesity. 5. Moderate protein calorie malnutrition. PLAN: We will continue with Lovenox and Coumadin until we reach a therapeutic INR. Then the patient can be discharged home. Unfortunately because of his chronic kidney disease Xarelto and Eliquis are not options for this patient. Dictated by CHEPE Muñoz for Constantine Urias MD cc: CHEPE Muñoz MD
[2016-12-04] MEDS ORDERED: TOUJEO SOLOSTAR SUBQ SCH (17:54)
[2016-12-04] MEDS ORDERED: COUMADIN PO SCH (21:00)
[2016-12-04] MEDS ORDERED: INSULIN PEN NEEDLES ONE (21:27)
[2016-12-04] MEDS: COZAAR PO SCH (21:32)
[2016-12-04] MEDS: LIPITOR PO SCH (21:32)
[2016-12-04] MEDS: COUMADIN PO SCH (21:33)
[2016-12-04] MEDS: DESYREL PO SCH (21:34)
[2016-12-05] MEDS: LOVENOX SUBQ SCH ×2 (05:26→17:46)
[2016-12-05] MEDS: NEURONTIN PO SCH ×3 (05:26→22:15)
[2016-12-05 06:27] LABS: INR 1.05 (0.86-1.15)
[2016-12-05] MEDS: HUMALOG DOSE (PARKWAY) SUBQ SCH ×3 (08:50→16:12)
[2016-12-05] MEDS: REGLAN PO SCH ×3 (08:51→16:12)
[2016-12-05] MEDS: REQUIP PO SCH ×2 (08:51→22:11)
[2016-12-05] MEDS: DETROL LA PO SCH ×2 (08:51→22:13)
[2016-12-05] MEDS: BUSPAR PO SCH (08:52)
[2016-12-05] MEDS: VITAMIN D PO SCH (08:52)
[2016-12-05] MEDS: PROZAC PO SCH (08:52)
[2016-12-05] MEDS: NORVASC PO SCH ×2 (08:56)
[2016-12-05] MEDS: FLONASE NAS SCH (09:01)
--- NOTE | 2016-12-05 10:31 | PROGRESS NOTE ---
DATE: 12/05/2016 SUBJECTIVE: No new complaints. OBJECTIVE: Vital Signs: Temperature 97, pulse 54, respiratory rate 18, BP 130/72 sat 99% on room air. General: Patient is awake, alert, obese male who is currently in no distress. HEENT: Normocephalic, atraumatic. Neck: Supple. CV: Regular rate. Chest: Clear. Abdomen: Soft. Extremities: Moves all extremities. Neurologic: No changes. ASSESSMENT: 1. Left lower extremity DVT, currently on Coumadin secondary to his chronic renal dysfunction. 2. Chest pain resolved. 3. Hypertension, slightly improved with Norvasc, currently 130/72. 4. Hyponatremia, resolved. PLAN: We will continue Coumadin until INR is greater than 2. Patient certainly needs to begin treating his sleep apnea. He will need to have an outpatient sleep study. We will continue sliding scale insulin for his diabetes. Further orders as needed. cc: Constantine Urias MD
[2016-12-05] MEDS: COUMADIN PO SCH (22:10)
[2016-12-05] MEDS: DESYREL PO SCH (22:11)
[2016-12-05] MEDS: COZAAR PO SCH (22:11)
[2016-12-05] MEDS: LIPITOR PO SCH (22:11)
[2016-12-05] MEDS: TOUJEO SOLOSTAR SUBQ SCH (22:13)
[2016-12-06 06:55] LABS: CALCIUM 8.4 mg/dL (8.8-10.2)
[2016-12-06] MEDS: REGLAN PO SCH ×3 (07:01→16:46)
[2016-12-06] MEDS: NEURONTIN PO SCH ×3 (07:01→21:06)
[2016-12-06] MEDS: HUMALOG DOSE (PARKWAY) SUBQ SCH ×3 (07:01→16:46)
[2016-12-06] MEDS: LOVENOX SUBQ SCH ×2 (07:02→17:56)
[2016-12-06 07:22] LABS: INR 1.28 (0.86-1.15); PROTIME 16.3 Seconds (12.1-15.5)
[2016-12-06] MEDS: PROZAC PO SCH (10:21)
[2016-12-06] MEDS: DETROL LA PO SCH ×2 (10:21→20:49)
[2016-12-06] MEDS: FLONASE NAS SCH (10:21)
[2016-12-06] MEDS: NORVASC PO SCH (10:21)
[2016-12-06] MEDS: BUSPAR PO SCH (10:21)
[2016-12-06] MEDS: REQUIP PO SCH ×2 (10:22→20:49)
[2016-12-06] MEDS: TOUJEO SOLOSTAR SUBQ SCH ×3 (10:22→21:06)
[2016-12-06] MEDS: VITAMIN D PO SCH (10:23)
[2016-12-06] MEDS: NORCO-10 PO PRN (12:17)
--- NOTE | 2016-12-06 14:25 | PROGRESS NOTE ---
DATE: 12/06/2016 SUBJECTIVE: The patient has no complaints. He denies chest pain, palpitations, shortness of breath, any GI or . OBJECTIVE: Vital Signs: Blood pressure is 180/88 with a heart rate of 71, temperature is 98.4 degrees oral, with room air saturations are 97 to 100%. Cardiovascular: Regular rate and rhythm. S1 and S2 appreciated. Pulmonary: Breath sounds are clear with no increased work of breathing noted. Gastrointestinal: Abdomen is soft, nontender, nondistended with bowel sounds in all 4 quadrants. Extremities: No clubbing. Neurologic: He is alert and oriented x4.. LABS: INR is 1.28. Creatinine is 2.9. Glucose is ranging it looks like 160s to 180s. ASSESSMENT: 1. Left lower extremity deep vein thrombosis. Currently on Coumadin secondary to his chronic renal dysfunction. 2. Chronic kidney disease with a baseline creatinine it looks like of 2.2 to 2.6 over the last year. 3. Hypertension. 4. Chest pain, resolved. 5. Hyponatremia, resolved. 6. Deep vein thrombosis prophylaxis, Coumadin. 7. Gastrointestinal prophylaxis. Dictated by CHEPE Muñoz for Constantine Urias MD cc: CHEPE Muñoz MD
[2016-12-06] MEDS: COZAAR PO SCH (20:49)
[2016-12-06] MEDS: COUMADIN PO SCH (20:50)
[2016-12-06] MEDS: DESYREL PO SCH ×2 (20:50→22:40)
[2016-12-06] MEDS: LIPITOR PO SCH (20:50)
[2016-12-06] MEDS ORDERED: CATAPRES PO PRN (21:57)
[2016-12-06] MEDS ORDERED: DESYREL PO SCH (22:00)
[2016-12-07] MEDS: LOVENOX SUBQ SCH ×2 (06:27→17:33)
[2016-12-07] MEDS: NEURONTIN PO SCH ×3 (06:27→21:00)
[2016-12-07] MEDS: NORCO-10 PO PRN ×2 (06:27→12:32)
[2016-12-07 06:29] LABS: INR 1.58 (0.86-1.15); PROTIME 19.1 Seconds (12.1-15.5)
[2016-12-07] MEDS ORDERED: HUMALOG (PARKWAY) SUBQ SCH (07:30)
[2016-12-07] MEDS ORDERED: INSULIN PEN NEEDLES ONE (08:29)
[2016-12-07] MEDS: REQUIP PO SCH ×2 (08:35→21:01)
[2016-12-07] MEDS: TOUJEO SOLOSTAR SUBQ SCH ×2 (08:36→21:03)
[2016-12-07] MEDS: PROZAC PO SCH (08:37)
[2016-12-07] MEDS: BUSPAR PO SCH (08:37)
[2016-12-07] MEDS: NORVASC PO SCH (08:37)
[2016-12-07] MEDS: REGLAN PO SCH ×3 (08:37→15:36)
[2016-12-07] MEDS: VITAMIN D PO SCH (08:37)
[2016-12-07] MEDS: DETROL LA PO SCH ×2 (08:37→21:03)
[2016-12-07] MEDS: SEROQUEL PO SCH (08:37)
[2016-12-07] MEDS: FLONASE NAS SCH (08:38)
[2016-12-07] MEDS ORDERED: NORVASC PO SCH (09:00)
--- NOTE | 2016-12-07 12:07 | EKG Report ---
Test Performed on : 12/07/2016 11:57:08 AM Test Reason : Chest Pain Blood Pressure : / mmHG Vent. Rate : 068 BPM Atrial Rate : 068 BPM P-R Int : 150 ms QRS Dur : 092 ms QT Int : 394 ms P-R-T Axes : 014 -10 030 degrees QTc Int : 418 ms Normal sinus rhythm. Normal ECG When compared with ECG of 02-DEC-2016 10:08, (Unconfirmed) premature atrial complexes. are no longer present Questionable change in QRS axis Confirmed by Johnny Chong MD ([id number]) on 12/09/2016 10:34:25 PM
[2016-12-07] MEDS: HUMALOG DOSE (PARKWAY) SUBQ SCH ×2 (12:32→17:32)
[2016-12-07] MEDS ORDERED: APRESOLINE PO SCH (14:00)
--- NOTE | 2016-12-07 18:20 | PROGRESS NOTE ---
DATE: 12/07/2016 SUBJECTIVE: Patient has no complaints. States he is feeling better. Started getting out of bed. Denies any chest pain or palpitations. Denies any fevers or chills. Denies any dysuria or hematuria. Denies any polyuria or polydipsia. OBJECTIVE: Vital signs: Temperature 97, pulse 68, respiratory rate 20, blood pressure 149/104 to 155/85. General: Patient is awake, alert, obese male who is currently in no respiratory distress. Speech is regular. Memory is intact. HEENT: Normocephalic, atraumatic. PERRL. Neck: Supple. CV: Regular rate. Chest: Relatively clear. Abdomen: Soft. Morbidly obese. Extremities: Moves all extremities. Neurologic: No changes. ASSESSMENT: 1. Small pulmonary emboli, stable. 2. Left lower extremity DVT, stable. 3. Hypertension. The patient's blood pressure continues to be problematic. We have added Norvasc 10 mg and have increased his Catapres to 0.2. Will add hydralazine 25 t.i.d. to his Losartan 100 and will follow. 4. Hyponatremia, resolved. PLAN: Will continue patient in the hospital until his INR is greater than 2. Will continue to adjust his blood pressure medications. Orders as needed. cc: Constantine Urias MD
[2016-12-07] MEDS ORDERED: COUMADIN PO SCH (21:00)
[2016-12-07] MEDS: DESYREL PO SCH (21:01)
[2016-12-07] MEDS: COZAAR PO SCH (21:01)
[2016-12-07] MEDS: LIPITOR PO SCH (21:03)
[2016-12-07] MEDS: APRESOLINE PO SCH (21:03)
[2016-12-08] MEDS: HUMALOG DOSE (PARKWAY) SUBQ SCH ×2 (06:31→12:09)
[2016-12-08] MEDS: APRESOLINE PO SCH ×2 (06:32→12:09)
[2016-12-08] MEDS: NEURONTIN PO SCH ×2 (06:32→14:24)
[2016-12-08] MEDS: LOVENOX SUBQ SCH (06:32)
[2016-12-08 06:44] LABS: HEMATOCRIT 34.2 % (42.0-52.0); HEMOGLOBIN 11.1 g/dL (14.0-18.0); MCH 28.4 PG (27-31); MCHC 32.5 g/dL (33-37); MCV 87.5 FL (81-99); MPV 12.8 FL (7.4-10.4); RBC 3.91 XMIL (4.7-6.1)
[2016-12-08 07:14] LABS: AGAP 11; ALBUMIN 2.2 g/dL (3.5-5.0); ALKALINE PHOSPHATASE 124 U/L (32-122); BUN 33 mg/dL (8-22); CALCIUM 8.1 mg/dL (8.8-10.2); CHLORIDE 108 mmol/L (98-107); COSMO 295; GOT 20 U/L (10-34); GPT 22 U/L (10-44); MAGNESIUM 2.1 mg/dL (1.5-2.7); POTASSIUM 4.2 mmol/L (3.5-5.1); SODIUM 139 mmol/L (136-145); TCO2 19 mmol/L (25-35); TOTAL BILIRUBIN < 0.15 mg/dL (0.20-1.00); TOTAL PROTEIN 4.8 g/dL (6.3-8.3)
[2016-12-08 07:22] LABS: INR 2.29 (0.86-1.15); PROTIME 25.3 Seconds (12.1-15.5)
[2016-12-08 07:50] VITALS: BP 111/52
[2016-12-08] MEDS: TOUJEO SOLOSTAR SUBQ SCH (09:12)
[2016-12-08] MEDS: VITAMIN D PO SCH (09:12)
[2016-12-08] MEDS: BUSPAR PO SCH (09:13)
[2016-12-08] MEDS: PROZAC PO SCH (09:13)
[2016-12-08] MEDS: DETROL LA PO SCH (09:13)
[2016-12-08] MEDS: REQUIP PO SCH (09:13)
[2016-12-08] MEDS: NORVASC PO SCH (09:13)
[2016-12-08] MEDS: SEROQUEL PO SCH (09:13)
[2016-12-08] MEDS: FLONASE NAS SCH (09:13)
[2016-12-08] MEDS: REGLAN PO SCH ×2 (09:13→12:09)
--- NOTE | 2016-12-08 17:58 | DISCHARGE SUMMARY ---
ADMISSION DATE: 12/01/2016 DISCHARGE DATE: 12/08/2016 DIAGNOSES: 1. Deep venous thrombosis, left lower extremity. 2. Small pulmonary emboli. 3. Hypertension. 4. Hyponatremia, resolved. 5. Acute kidney injury on chronic kidney disease, resolved. PROCEDURES: 1. Lower extremity Doppler bilateral revealed acute deep venous stenosis involving the left popliteal, left posterior tibial vein and the left peroneal veins. Acute filling defects consistent with deep vein thrombosis involving the left popliteal, posterior tibial and peroneal veins. Common femoral vein, and superficial femoral veins are patent. There is also superficial thrombus in the lesser saphenous vein. Right reveals no evidence of venous thrombosis. 2. V/Q scan revealed small unmatched perfusion defect involving the lingular segment of the left upper lobe with high probability of pulmonary embolism. HOSPITAL COURSE: Mr. De La Torre presented to the emergency room complaining of chest pain. He was found to have a D-dimer of 5.5. V/Q scan was performed due to his renal function which revealed a small left-sided pulmonary embolus. He was also found to have a left leg DVT as well as superficial thrombus. He was anticoagulated with Lovenox, warfarin was instituted. His INR today has been 2.29. Therefore, Lovenox can be stopped and he may be discharged. He has done well through the hospitalization. He did have episodes of shortness of breath. This has resolved. He has been getting out of bed walking with no chest pain, palpitations dyspnea on exertion. DISCHARGE PHYSICAL EXAMINATION: Cardiovascular: Regular rate and rhythm. S1, S2 appreciated. Pulmonary: Breath sounds are clear with no increased work of breathing noted. Gastrointestinal: Abdomen soft, nontender, nondistended with bowel sounds in all 4 quadrants. Neurologic: He is alert and oriented x3 with cranial nerves 2-12 grossly intact. DISCHARGE MEDICATIONS: 1. Humalog, as directed. 2. Seroquel 25 mg daily. 3. Clonidine 0.2 as directed. 4. Clonidine patch TTS 2 every 7 days. 5. Insulin Toujeo 40 units subcutaneous a.m. 6. Toujeo 80 units subcutaneous at bedtime. 7. Trazodone 200 mg at bedtime. 8. Amlodipine 10 mg daily. 9. BuSpar 5 mg daily. 10. Prozac 40 mg daily. 11. Atorvastatin 40 mg at bedtime. 12. Flonase 2 sprays daily. 13. Vitamin D3 1000 daily. 14. Detrol LA 4 mg b.i.d. 15. Reglan 10 mg a.c. and at bedtime. 16. Warfarin 10 mg at bedtime. 17. Requip 4 mg b.i.d. 18. Inez 10 as directed. 19. Apresoline 25 mg q.8 hours. 20. Neurontin 800 mg q.8 hours. DISCHARGE ACTIVITY: As tolerated. DISCHARGE DIET: Diabetic healthy heart. FOLLOWUP: He needs to follow up with his primary care physician, Daisy Dent DO tomorrow 12/09/2016 to notify them of warfarin being instituted. He will need to have an INR drawn Friday or Friday and further dosing instructions for his warfarin can be per his primary care physician. He is being discharged home in stable condition with family members. TIME SPENT: Greater than 30 minute discharge. Dictated by CHEPE Muñoz for Constantine Urias MD cc: CHEPE Muñoz MD
--- NOTE | 2016-12-11 01:40 | PROVIDER DOCUMENTATION ---
This chart was entered by Glenys Iniguez Scribe, acting as scribe for Jamar Marcus MD. HPI-Chest Pain - General Chief Complaint: Chest Pain Stated Complaint: CHEST PAINS Time Seen by Provider: 12/01/16 23:27 Source: patient Allergies/Adverse Reactions: Patient Allergies Allergy/AdvReac Type Severity Reaction Status Date / Time cephalexin monohydrate * Allergy Unknown Verified 12/01/16 22:13 [From Keflex] Penicillins Allergy Unknown Verified 12/01/16 22:13 Home Medications: Home Medication List Medication Instructions Recorded Confirmed Last Taken Type Fluticasone Propionate [Flonase 2 spray INH DAILY 03/30/16 12/10/16 12/09/16 History Allergy Relief] Losartan [Cozaar] 100 mg PO DAILY 08/20/16 12/10/16 12/10/16 History ATORVAstatin [Lipitor] 40 mg PO QHS #30 tablet 08/23/16 12/10/16 12/09/16 Rx Cholecalciferol (Vit D3) [Vitamin 1,000 unit PO DAILY #30 tablet 08/23/1612/10/16 Rx D3] Clonidine Patch [Pqyddnfn-Reh-8] 0.2 mg TD DIRECTED #10 patch 08/23/1612/02/16 Rx Insulin Glargine,Hum.rec.anlog 80 unit SQ HS #2 insuln.pen 08/23/16 12/10/16 Rx [Toujeo Solostar] Metoclopramide [Reglan] 10 mg PO TID AC #120 tablet 08/23/16 12/10/16 12/10/16 Rx Buspirone HCl 5 mg PO BID 12/01/16 12/10/16 12/10/16 History Fluoxetine HCl [Prozac] 40 mg PO DAILY 12/01/16 12/10/16 12/10/16 History Insulin Glargine,Hum.rec.anlog 40 unit SQ QAM 12/01/16 12/10/16 12/10/16 History [Toujeo Solostar] Tolterodine L.a. [Detrol LA] 4 mg PO BID 12/01/16 12/10/16 12/10/16 History Amlodipine Besylate 10 mg PO DAILY 12/04/16 12/10/16 12/10/16 History Insulin Lispro [Humalog] 14 - 25 units SQ DIRECTED 12/04/16 12/10/16 History Trazodone [Desyrel] 200 mg PO QHS 12/04/16 12/10/16 12/09/16 History Clonidine [Catapres] 0.2 mg PO DIRECTED PRN 12/06/16 12/10/16 Unknown History Quetiapine Fumarate 25 mg PO DAILY 12/06/16 12/10/16 12/10/16 History Gabapentin [Neurontin] 800 mg PO Q8H capsule 12/08/16 12/10/16 Unknown Rx Hydralazine [Apresoline] 25 mg PO Q8H #90 tablet 12/08/16 Unknown Rx Hydrocodone/APAP 10 mg/325 mg 1 each PO Q6H PRN PRN #15 tablet 12/08/1612/08/16 Rx [Gaffney-10] Ropinirole [Requip] 4 mg PO BID tablet 12/08/16 12/10/16 12/10/16 Rx Warfarin [Coumadin] 10 mg PO QHS #30 tablet 12/08/16 12/10/16 12/09/16 Rx - History of Present Illness-CP Nature of Presenting Problem: Pt is a 56 year old male who came to the ED with a cc of chest pain that lasted for about 2-3 hours today. Location: reports: central Chest Pain Radiation: reports: no radiation Quality of Pain: reports: sharp Onset/Duration: 1-3 hours ago Timing: still present Context/Activities at Onset: reports: none Modifying Factors: improves with: nothing Associated Symptoms: reports: abdominal pain Nitro Today/Relief: no nitro taken today Aspirin Treatment Today: no aspirin today Prior Chest Pain/Cardiac Workup: reports: no prior chest pain Similar Symptoms Previously?: No Recently Seen Here or By Another Healthcare Provider: No Review of Systems - Adult - REVIEW OF SYSTEMS - ADULT Constitutional: reports: no symptoms reported Eyes: denies: decreased vision, blurred vision Ears, Nose, Mouth & Throat: denies: epistaxis, loose teeth Cardiovascular: reports: chest pain. denies: heart murmur, orthopnea Respiratory: reports: no symptoms reported Gastrointestinal: denies: diarrhea, nausea, vomiting Genitourinary: reports: no symptoms reported Musculoskeletal: reports: no symptoms reported Integumentary: reports: no symptoms reported Neurological: reports: no symptoms reported Psychiatric: reports: no symptoms reported Endocrine: reports: no symptoms reported Hematologic/Lymphatic: reports: no symptoms reported Allergic/Immunologic: reports: no symptoms reported All Other Systems: Reviewed and Negative Past History - Adult - PAST MEDICAL HISTORY-ADULT Review of Records: reports: Old Records Reviewed Major Childhood Illnesses: reports: denies history Cardiovascular: reports: HTN, hyperlipidemia Respiratory: reports: sleep apnea Genitourinary: reports: cancer (kidney) Endocrine/Immune: reports: Diabetes Other Conditions: reports: other (right kidney ca 2011) Additional History: left heal diabetic Foot ulcer - PRIOR SURGERIES/PROCEDURES Surgical/Procedure History: reports: appendectomy, cholecystectomy, orthopedic ( extremity), other (Right Nephrectomy) - IMMUNIZATION STATUS Childhood Immunizations: See Nurse Assessment Flu Vaccine: See Nurse Assessment - FAMILY HISTORY Family History: reviewed, not pertinent Physical Exam-General - PHYSICAL EXAM-ADULT Initial Vital Signs Reviewed: Yes - CONSTITUTIONAL General Appearance: appears well, alert - EYES Eyes: PERRL/EOMI, pink conjunctivae - HEAD, EARS, NOSE, MOUTH & THROAT HENMT: normocephalic/atraumatic, moist mucous membranes - RESPIRATORY Respiratory: chest non-tender, lungs clear, normal breath sounds - CARDIOVASCULAR Cardiovascular: bradycardia - GASTROINTESTINAL (ABDOMEN) Abdominal Exam: normal bowel sounds, non tender, soft - MUSCULOSKELETAL Back Exam: normal inspection, no CVA tenderness Extremity: pedal edema (1+) - SKIN Integumentary: normal color, normal turgor - NEUROLOGIC Neurologic: grossly normal - PSYCHIATRIC Psych/Mental Status: normal mood/affect, normal thought content, normal thought process, oriented x 3 Progress - PLAN OF CARE/RESULTS Result Diagrams: 12/08/16 05:30 12/08/16 05:30 - XRAY 1 XRAY Study: Chest (mild cardiomegly) Departure - Departure Date of Disposition Decision: 12/01/16 Time of Disposition Decision: 00:00 DIAGNOSIS: Chest pain Disposition: ADMITTED INPATIENT 09 Certified Medical Emergency: Emergent Condition: Stable - Critical Care Note This patient required my direct & personal management of CC.: No This chart was documented by the indicated scribe, (Glenys Iniguez Scribe) and accurately reflects the services I performed and decisions made by me, Jamar Marcus MD, as attested by the provider's signature.
== END 2016-12-08 16:00 | disposition home or self-care (01) ==
LOC: P.MEDSURG 21:54 → P.ED 21:54 → OBSVTOIN 21:55 → P.MEDSURG 12-06 16:54
PROVIDERS: ATTEND Family Medicine